=== PATIENT | female | born 1935 | race Caucasian/White ===

== ENCOUNTER → 2019-04-18 12:33 | Outpatient (CLI) | payer OTHER, SELFPAY ==
--- NOTE | 2019-04-18 | DI.RAD.S_ITS ---
PROCEDURE: XR FOOT LT MIN 3V INDICATIONS: LEFT FOOT PAIN TECHNIQUE: 3 views of the foot were acquired. COMPARISON: None. FINDINGS: Bones: No fractures or dislocations. No suspicious bony lesions. Soft tissues: No tibiotalar joint effusion. Achilles tendon appears normal. IMPRESSION: Arthritic changes seen at the interphalangeal joints and at the tarsal-metatarsal area. No acute trauma found. Dictated by: Steven Pryor M.D. on 04/18/2019 at 14:25 Approved by: Steven Pryor M.D. on 04/18/2019 at 14:26
== END ==
PROVIDERS: PCP Student in an Organized Health Care Education/Training Program; Visit Provider Student in an Organized Health Care Education/Training Program
DX: M79.672 Pain in left foot (principal)
CPT/HCPCS: 73630

== ENCOUNTER 2019-12-12 11:06 | Inpatient (IN) | payer OTHER, SELFPAY ==
[2019-12-12] VITALS (21 sets, daily range): BP systolic 162–227; BP diastolic 73–108; PULSE 53–77; RESP 14–18; TEMP 36.3–37.2; O2SAT 95–100; BMI 25.0
--- NOTE | 2019-12-12 11:20 | DI.CT.S_ITS ---
PROCEDURE: CT HEAD/BRAIN WO CON INDICATIONS: right facial droop last night TECHNIQUE: Noncontrast 4.5 mm thick angled axial sections acquired from the foramen magnum to the vertex, with coronal and sagittal reformats. For radiation dose reduction, the following was used: automated exposure control, adjustment of mA and/or kV according to patient size. COMPARISON: None. FINDINGS: Image quality: Excellent. CSF spaces: Basal cisterns are patent. No extra-axial fluid collections. The ventricles are symmetric in size and shape. Brain: No intracranial bleeds or masses. There is cerebral volume loss for age, with resultant ventricular and sulcal prominence. There are moderate to severe periventricular and deep white matter chronic small vessel ischemic changes. There is intracranial internal carotid artery atherosclerosis. Skull and face: Calvarium and visualized facial bones appear intact, without suspicious lesions. Sinuses: Visualized sinuses and mastoids are clear. IMPRESSION: 1. Age related volume loss and moderate to severe small vessel ischemic change. 2. No evidence acute stroke, hemorrhage, or mass. Dictated by: Samuel Sepulveda M.D. on 12/12/2019 at 11:49 Approved by: Samuel Sepulveda M.D. on 12/12/2019 at 11:50
--- NOTE | 2019-12-12 11:32 | ED_ITS ---
HPI - General Adult General Chief complaint: Neuro Symptoms/Deficit Stated complaint: TIA Time Seen by Provider: 12/12/19 11:19 History of Present Illness HPI narrative: 84-year-old woman with a history of osteoporosis presents with progressive neurologic findings. She currently lives alone and is waiting for her to be able to get into the [place] from [place]. Approximately 6:00 a.m. last night she looked in the mirror and noticed some mild facial asymmetry. She had not looked in the mirror all day so does not know what time this actually started. There were no sensory deficits associated. 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 Related Data Home Medications Medication Instructions Recorded Confirmed No Known Home Medications 12/12/19 12/12/19 Allergies Allergy/AdvReac Type Severity Reaction Status Date / Time No Known Drug Allergies Allergy Verified 12/12/19 11:40 Review of Systems Review of Systems Narrative: Denies ? fever ? cough ? cold ? chills ? chest pain ? dyspnea ? orthopnea ? wheezing ? abdominal pain ? change to bowel or bladder habits ? nausea vomiting ? skin changes ? rashes Patient History Medical History (Updated 12/12/19 @ 12:59 by Hailee Tuttle MD) Fx humeral neck (Inactive) Osteoporosis (Acute) Surgical History (Updated 12/12/19 @ 11:35 by Hailee Tuttle MD) H/O breast augmentation (Acute) Social History Smoking Status: Never smoker Exam Narrative Exam Narrative: General: Healthy appearing, in no acute distress. Able to give a complete and coherent history. Well-nourished well-developed HEENT: Moist mucous membranes, normal sclera with reactive pupils, Neck: No JVD, supple Respiratory: Lungs are clear to auscultation, no wheezing no rales no rhonchi. Full and symmetrical air movement Cardiac: Regular rate and rhythm no murmurs no bruits Abdomen: Soft nontender good bowel tones, no flank pain Skin: Warm and dry, no rashes Neurologic: Mild right facial droop with no sensory deficit, tongue deviates slightly to the left when fully extended, very mild dysarthria. She describes being off balance and right hand deficits but not significant enough to change her NIH score Extremities: No trauma, well perfused Psych: Cooperative, appropriate insight and affect NIH Stroke Scale/Score (NIHSS) from [email or web address] on 12/12/2019 RESULT SUMMARY: 2 points NIH Stroke Scale INPUTS: 1A: Level of consciousness ?> 0 = Alert; keenly responsive 1B: Ask month and age ?> 0 = Both questions right 1C: 'Blink eyes' & 'squeeze hands' ?> 0 = Performs both tasks 2: Horizontal extraocular movements ?> 0 = Normal 3: Visual styles ?> 0 = No visual loss 4: Facial palsy ?> 1 = Minor paralysis (flat nasolabial fold, smile asymmetry) 5A: Left arm motor drift ?> 0 = No drift for 10 seconds 5B: Right arm motor drift ?> 0 = No drift for 10 seconds 6A: Left leg motor drift ?> 0 = No drift for 5 seconds 6B: Right leg motor drift ?> 0 = No drift for 5 seconds 7: Limb Ataxia ?> 0 = No ataxia 8: Sensation ?> 0 = Normal; no sensory loss 9: Language/aphasia ?> 0 = Normal; no aphasia 10: Dysarthria ?> 1 = Mild-moderate dysarthria: slurring but can be understood 11: Extinction/inattention ?> 0 = No abnormality Initial Vital Signs Initial Vital Signs: Vital Signs Pulse Rate 72 12/12/19 11:16 Respiratory Rate 17 12/12/19 11:16 Blood Pressure 227/102 H 12/12/19 11:16 Pulse Oximetry 97 12/12/19 11:16 Course Course Course Narrative: Due to the unknown time of onset (very likely greater than 24 hours) and very low NIH score, she is not a tPA candidate Orders Ordered: ED Orders 12/12/19 11:20 CT head/brain wo con Stat EKG-12 Lead Stat 12/12/19 11:26 Complete Blood Count AUTO DIFF Stat Comprehensive Metabolic Panel Stat Partial Thromboplastin Time Stat Prothrombin Time INR Stat Urine Drug Screen, Rapid Stat Sodium Chloride (Normal Saline 0.9%) 1,000 mls @ 150 mls/hr IV CONT KRISTY Last Admin: 12/12/19 12:56 Dose: 150 mls/hr Documented by: MARITA Discontinued Medications Labetalol HCl (Trandate) 10 mg IV NOW ONE Stop: 12/12/19 12:37 Last Admin: 12/12/19 12:56 Dose: 10 mg Documented by: MARITA Vital Signs Vital signs: Vital Signs - 8 hr 12/12/19 11:16 12/12/19 11:19 12/12/19 11:27 Temperature Pulse Rate 72 71 67 Respiratory Rate 17 18 17 Blood Pressure 227/102 H Blood Pressure [Left Arm] 227/102 H 215/86 H Pulse Oximetry 97 97 98 12/12/19 11:42 12/12/19 11:46 12/12/19 12:00 Temperature 97.9 F Pulse Rate 64 62 Respiratory Rate 16 16 Blood Pressure Blood Pressure [Left Arm] 205/93 H 207/88 H Pulse Oximetry 99 99 12/12/19 12:15 12/12/19 12:30 12/12/19 12:45 Temperature Pulse Rate 60 61 60 Respiratory Rate 16 18 15 Blood Pressure Blood Pressure [Left Arm] 201/83 H 187/108 H 207/92 H Pulse Oximetry 12/12/19 12:56 Temperature Pulse Rate 66 Respiratory Rate Blood Pressure 207/92 H Blood Pressure [Left Arm] Pulse Oximetry Medical Decision Making Medical Records Medical records reviewed: Yes I reviewed the patient's medical records. Lab Data Lab results reviewed: Yes I reviewed the patient's lab results. Result diagrams: 12/12/19 11:26 12/12/19 11:26 Labs: Lab Results 12/12/19 12/12/19 12/12/19 Range/Units 11:26 11:26 11:26 WBC 6.8 (4.5-11.0) X10^3/uL RBC 4.61 (4.0-5.2) X10^6/uL Hgb 14.3 (12.0-16.0) g/dL Hct 42.8 (36-46) % MCV 92.9 (80-100) fL MCH 30.9 (26-34) PG MCHC 33.3 (30-36) % RDW 13.9 (11.6-14.8) % Plt Count 293 (150-400) X10^3/uL Neut % (Auto) 69.5 (50-75) % Lymph % (Auto) 21.5 L (25-40) % [place] % (Auto) 7.3 (3-14) % Eos % (Auto) 1.2 L (2-4) % Baso % (Auto) 0.5 (0-2) % Neut # (Auto) 4700 (9465-0382) /uL Lymph # (Auto) 1500 (6564-0372) /uL [place] # (Auto) 500 (0-900) /uL Eos # (Auto) 100 (0-450) /uL Baso # (Auto) 0 (0-100) /uL PT 11.6 (10.1-12.7) SECONDS INR 1.0 (0.9-1.3) APTT 33 (26.4-36.2) SECONDS Sodium 139 (137-145) mmol/L Potassium 4.4 (3.4-5.1) mmol/L Chloride 104 (98-107) mmol/L Carbon Dioxide 29 (22-32) mmol/L BUN 22 H (7-17) mg/dL Creatinine 0.66 (0.52-1.04) mg/dL Estimated GFR > 60.0 (>60) mL/min BUN/Creatinine Ratio 33.3 H (6-22) Glucose 108 (80-110) mg/dL Calcium 9.2 (8.4-10.2) mg/dL Total Bilirubin 0.4 (0.2-1.3) mg/dL AST 24 (14-36) IU/L ALT 14 (<35) IU/L Alkaline Phosphatase 70 (38-126) U/L Total Protein 7.8 (6.3-8.2) g/dL Albumin 4.3 (3.5-5.0) g/dL Globulin 3.5 (1.7-4.1) g/dL Albumin/Globulin Ratio 1.2 (1.0-2.8) U Opiates 300ng/mL cut (Negative) Ur Oxycodone Screen (Negative) Urine Methadone Screen (Negative) Ur Barbiturates Screen (Negative) U Tricyclic Antidepress (Negative) Ur Phencyclidine Scrn (Negative) Ur Amphetamines Screen (Negative) U Methamphetamines Scrn (Negative) Ur MDMA Scrn (Ecstasy) (Negative) U Benzodiazepines Scrn (Negative) Urine Cocaine Screen (Negative) U Marijuana (THC) Screen (Negative) 12/12/19 Range/Units 11:26 WBC (4.5-11.0) X10^3/uL RBC (4.0-5.2) X10^6/uL Hgb (12.0-16.0) g/dL Hct (36-46) % MCV (80-100) fL MCH (26-34) PG MCHC (30-36) % RDW (11.6-14.8) % Plt Count (150-400) X10^3/uL Neut % (Auto) (50-75) % Lymph % (Auto) (25-40) % [place] % (Auto) (3-14) % Eos % (Auto) (2-4) % Baso % (Auto) (0-2) % Neut # (Auto) (9920-9453) /uL Lymph # (Auto) (3778-5975) /uL [place] # (Auto) (0-900) /uL Eos # (Auto) (0-450) /uL Baso # (Auto) (0-100) /uL PT (10.1-12.7) SECONDS INR (0.9-1.3) APTT (26.4-36.2) SECONDS Sodium (137-145) mmol/L Potassium (3.4-5.1) mmol/L Chloride (98-107) mmol/L Carbon Dioxide (22-32) mmol/L BUN (7-17) mg/dL Creatinine (0.52-1.04) mg/dL Estimated GFR (>60) mL/min BUN/Creatinine Ratio (6-22) Glucose (80-110) mg/dL Calcium (8.4-10.2) mg/dL Total Bilirubin (0.2-1.3) mg/dL AST (14-36) IU/L ALT (<35) IU/L Alkaline Phosphatase (38-126) U/L Total Protein (6.3-8.2) g/dL Albumin (3.5-5.0) g/dL Globulin (1.7-4.1) g/dL Albumin/Globulin Ratio (1.0-2.8) U Opiates 300ng/mL cut Negative (Negative) Ur Oxycodone Screen Negative (Negative) Urine Methadone Screen Negative (Negative) Ur Barbiturates Screen Negative (Negative) U Tricyclic Antidepress Negative (Negative) Ur Phencyclidine Scrn Negative (Negative) Ur Amphetamines Screen Negative (Negative) U Methamphetamines Scrn Negative (Negative) Ur MDMA Scrn (Ecstasy) Negative (Negative) U Benzodiazepines Scrn Negative (Negative) Urine Cocaine Screen Negative (Negative) U Marijuana (THC) Screen Negative (Negative) Point of Care Testing Glucose POC 99 Point of care testing: Point of Care Testing Glucose POC [address] scan - head: Radiologist's Impression: IMPRESSION: 1. Age related volume loss and moderate to severe small vessel ischemic change. 2. No evidence acute stroke, hemorrhage, or mass. Dictated by: Samuel Sepulveda M.D. on 12/12/2019 at 11:49 ECG Data Attestation: I personally reviewed and interpreted this ECG as follows: Interpretation: Normal sinus rhythm at a rate of 62 Q-waves in leads II and AVF suggesting prior infarct Right axis deviation No acute ischemic changes MDM Narrative Medical decision making narrative: Clinically she has had a left-sided stroke with right-sided facial droop, minor dysarthria and minor motor difficulties in the right upper and lower extremities. Continues to have significantly elevated blood pressure which will be treated with IV labetalol goal of a systolic blood pressure around 180. She will be admitted to the hospitalist service for further workup. Findings and plan reviewed with the patient as well as her via face time. [id number] Leach, hospitalist. Care is accepted. Discharge Plan Departure Patient Disposition: Admitted As Inpatient Clinical Impression: Stroke Qualifiers: CVA mechanism: unspecified Qualified Code(s): I63.9 - Cerebral infarction, unspecified Discharge Date/Time: 12/12/19 12:59 Admit Date/Time: 12/12/19 12:57 Admit Provider: [place] Leach
[2019-12-12 11:33] LABS: Add Manual Diff / Slide Review NO; Basophils Absolute Auto 0 /uL (0-100); Basophils Percent Auto 0.5 % (0-2); Eosinophils Absolute Auto 100 /uL (0-450); Eosinophils Percent Auto 1.2 % (2-4); Hematocrit 42.8 % (36-46); Hemoglobin 14.3 g/dL (12.0-16.0); Lymphocytes Absolute Auto 1500 /uL (1100-4500); Lymphocytes Percent Auto 21.5 % (25-40); Mean Corpuscular HGB Conc 33.3 % (30-36); Mean Corpuscular Hemoglobin 30.9 PG (26-34); Mean Corpuscular Volume 92.9 fL (80-100); Monocytes Absolute Auto 500 /uL (0-900); Monocytes Percent Auto 7.3 % (3-14); Neutrophils Absolute Auto 4700 /uL (1500-7000); Neutrophils Percent Auto 69.5 % (50-75); Platelet Count 293 X10^3/uL (150-400); Red Blood Cell Count 4.61 X10^6/uL (4.0-5.2); Red Cell Distribution Width 13.9 % (11.6-14.8); White Blood Cell Count 6.8 X10^3/uL (4.5-11.0)
[2019-12-12 11:39] LABS: Prothrombin Time 11.6 SECONDS (10.1-12.7)
[2019-12-12 11:41] LABS: PTT Partial Thromboplastin Tim 33 SECONDS (26.4-36.2)
[2019-12-12 11:43] LABS: Alanine Aminotransferase 14 IU/L (<35); Albumin 4.3 g/dL (3.5-5.0); Albumin Globulin Ratio 1.2 (1.0-2.8); Alkaline Phosphatase 70 U/L (38-126); Aspartate Aminotransferase 24 IU/L (14-36); BUN Creatinine Ratio 33.3 (6-22); Bilirubin Total 0.4 mg/dL (0.2-1.3); Blood Urea Nitrogen 22 mg/dL (7-17); Calcium 9.2 mg/dL (8.4-10.2); Carbon Dioxide 29 mmol/L (22-32); Chloride 104 mmol/L (98-107); Estimated Glomerular Filt Rate > 60.0 mL/min (>60); Globulin 3.5 g/dL (1.7-4.1); Glucose 108 mg/dL (80-110); HEMOLYSIS < 15 (0-50); Potassium 4.4 mmol/L (3.4-5.1); Sodium 139 mmol/L (137-145); Total Protein 7.8 g/dL (6.3-8.2)
[2019-12-12] MEDS: SODIUM CHLORIDE 0.9% 1,000 ML 150 ML IV (12:56)
[2019-12-12] MEDS: LABETALOL 20 MG/4 ML SYRINGE 10 MG IV (12:56)
[2019-12-12 13:00] LABS: UR Morphine/Opiate cutoff 300 Negative (Negative); Ur Creatinine Normal (Normal); Ur Specific Gravity Normal (Normal); Urine Amphetamines Negative (Negative); Urine Barbiturates Negative (Negative); Urine Benzodiazepines Negative (Negative); Urine Cocaine Negative (Negative); Urine MDMA Negative (Negative); Urine Methadone Negative (Negative); Urine Methamphetamines Negative (Negative); Urine Oxycodone Negative (Negative); Urine Phencyclidine Negative (Negative); Urine Tetrahydrocannabinol Negative (Negative); Urine Tricyclic Antidepressant Negative (Negative); Urine pH Normal (Normal)
--- NOTE | 2019-12-12 13:01 | PC.NURSE ---
patient resting in bed talking to on phone. Monitoring blood pressure. Patient in good spirits, denies complaints, and no neurological changes noted. Patient able to ambulate to bathroom with standby assistance. normal gate noted. call light in reach.
[2019-12-12 13:51] LABS: Bacteria Urine None Seen; RBC Urine None Seen (0-5/HPF); WBC Urine None Seen (0-5/HPF)
[2019-12-12 13:52] LABS: Appearance Urine UA CLEAR; Bilirubin Urine UA NEGATIVE (NEGATIVE); Color Urine UA YELLOW; Glucose Urine UA NEGATIVE (Negative); Ketones Urine UA NEGATIVE (NEGATIVE); Leukocyte Esterase Urine UA NEGATIVE (NEGATIVE); Nitrite Urine UA NEGATIVE (Negative); Occult Blood Urine UA NEGATIVE (Negative); Protein Urine UA NEGATIVE (Negative); Urobilinogen Urine UA 0.2 E.U./dL (0.2)
[2019-12-12 13:56] LABS: Culture Indicated Urine Cult Not Indicated; Urine Comments Microscopic Normal
--- NOTE | 2019-12-12 14:52 | P.HP_ITS ---
History of Present Illness History of Present Illness Date Patient Seen: 12/12/19 Time Patient Seen: 14:52 Date of Onset of Symptoms: 12/11/19 Chief complaint: TIA Narrative: Krista Ryan is an 84-year-old female with remote past medical h istory of hyperthyroidism but not currently on any medical therapy who presented with a right-sided facial droop since yesterday evening. Patient states that yesterday she felt off most of the day and fatigued. She denied any specific complaints until she looked in the bathroom ear and saw that she had a right- sided facial droop. She was it extremely tired at that time, and according to her she had been drinking so she went to bed. Prior to going to bed she did write her recumbent bike in her home for about 6 miles at full resistance. When she woke up this morning she had continued right-sided facial droop. She does note some difficulty in speaking in word finding, but only minimally. She has a dull diffuse headache, but minimal in severity and now hardly noticeable. She denies any recent chest pains, palpitations, shortness of breath, lower extremity edema, dizziness. She does endorse that this morning she was having difficulty in walking and noticed that she was drifting to the right. In the emergency room, patient was hypertensive, mildly bradycardic. She had an NIH stroke scale of 2. Initial laboratory evaluation the emergency room including CBC, CMP, urine drug screen, urinalysis did not reveal any remarkable abnormal lab findings. Initial head CT was negative for hemorrhage. EKG shows normal sinus rhythm, with flipped T-waves in her lateral leads I, aVL as well as lead II. She was admitted to Medicine for likely an acute CVA. Patient was ordered for loading dose of aspirin and Plavix given stroke scale less than 3 on admission. Patient History Medical History (Updated 12/12/19 @ 12:59 by Hailee Tuttle MD) Fx humeral neck (Inactive) Osteoporosis (Acute) Surgical History (Updated 12/12/19 @ 11:35 by Hailee Tuttle MD) H/O breast augmentation (Acute) Family & Social History Safety & Behavioral: Feels Safe in Current Yes Environment Been Physically Hurt or No Threatened By a Person Tobacco & Substance use: Smoking Status Never smoker Substance Use Type does not use Meds Home Medications and Allergies Home Medications Medication Instructions Recorded Confirmed Type No Known Home Medications 12/12/19 12/12/19 History Allergies Allergy/AdvReac Type Severity Reaction Status Date / Time No Known Drug Allergies Allergy Verified 12/12/19 11:40 Review of Systems Review of Systems Narrative: All other systems reviewed with the patient and are negative unless otherwise stated. Exam Vital Signs (past 8 hours): - 12/12/19 11:16 12/12/19 11:19 12/12/19 11:27 Temperature Pulse Rate 72 71 67 Respiratory Rate 17 18 17 Blood Pressure 227/102 H Blood Pressure [Left Arm] 227/102 H 215/86 H Pulse Oximetry 97 97 98 12/12/19 11:42 12/12/19 11:46 12/12/19 12:00 Temperature 97.9 F Pulse Rate 64 62 Respiratory Rate 16 16 Blood Pressure Blood Pressure [Left Arm] 205/93 H 207/88 H Pulse Oximetry 99 99 12/12/19 12:15 12/12/19 12:30 12/12/19 12:45 Temperature Pulse Rate 60 61 60 Respiratory Rate 16 18 15 Blood Pressure Blood Pressure [Left Arm] 201/83 H 187/108 H 207/92 H Pulse Oximetry 12/12/19 12:56 12/12/19 13:04 12/12/19 13:15 Temperature Pulse Rate 66 60 58 L Respiratory Rate 14 14 Blood Pressure 207/92 H Blood Pressure [Left Arm] 194/81 H 175/75 H Pulse Oximetry 97 98 12/12/19 13:17 12/12/19 13:58 12/12/19 14:21 Temperature 97.7 F 97.6 F Pulse Rate 58 L 57 L 57 L Respiratory Rate 14 14 Blood Pressure 174/78 H Blood Pressure [Left Arm] 175/75 H 162/73 H Pulse Oximetry 97 97 Oxygen Delivery Method Room Air Narrative Exam Narrative: GENERAL APPEARANCE: Well developed, well nourished, in no acute distress. SKIN: Inspection of the skin reveals no rashes, ulcerations or petechiae. HEENT: Normocephalic atraumatic, extraocular muscles are intact, oropharynx is clear and mucous membranes are moist, neck is supple without adenopathy NECK: Supple and symmetric. There was no thyroid enlargement, and no tenderness, or masses were felt. CHEST: Normal AP diameter and normal contour without any kyphoscoliosis. LUNGS: Auscultation of the lungs revealed no wheezes, rhonchi, or rales. CARDIOVASCULAR: There was a regular rate and rhythm without any murmurs, gallops , rubs. Peripheral pulses were 2+ and symmetric. ABDOMEN: Soft and nontender with normal bowel sounds. No ascites was noted. MUSCULOSKELETAL: There was no tenderness or effusions noted. Muscle strength and tone were normal. EXTREMITIES: No cyanosis, clubbing or edema. NEUROLOGIC: Alert and oriented x 3. Normal affect. Gait was not assessed. Heel to f[place] unremarkable, finger to nose unremarkable, no inattention. Moderate facial asymmetry on the right. No evident speech difficulties on my exam. Objective Labs Result Diagrams: 12/12/19 11:26 12/12/19 11:26 Labs: Laboratory Results - last 24 hr 12/12/19 12/12/19 12/12/19 11:26 11:26 11:26 WBC 6.8 RBC 4.61 Hgb 14.3 Hct 42.8 MCV 92.9 MCH 30.9 MCHC 33.3 RDW 13.9 Plt Count 293 Neut % (Auto) 69.5 Lymph % (Auto) 21.5 L [place] % (Auto) 7.3 Eos % (Auto) 1.2 L Baso % (Auto) 0.5 Neut # (Auto) 4700 Lymph # (Auto) 1500 [place] # (Auto) 500 Eos # (Auto) 100 Baso # (Auto) 0 PT 11.6 INR 1.0 APTT 33 Sodium 139 Potassium 4.4 Chloride 104 Carbon Dioxide 29 BUN 22 H Creatinine 0.66 Estimated GFR > 60.0 BUN/Creatinine Ratio 33.3 H Glucose 108 Calcium 9.2 Total Bilirubin 0.4 AST 24 ALT 14 Alkaline Phosphatase 70 Total Protein 7.8 Albumin 4.3 Globulin 3.5 Albumin/Globulin Ratio 1.2 Urine Color Urine Appearance Urine pH Ur Specific [place] Urine Protein Urine Glucose (UA) Urine Ketones Urine Occult Blood Urine Nitrate Urine Bilirubin Urine Urobilinogen Ur Leukocyte Esterase Urine RBC Urine WBC Urine Bacteria Ur Culture Indicated? Micro UA Comment U Opiates 300ng/mL cut Ur Oxycodone Screen Urine Methadone Screen Ur Barbiturates Screen U Tricyclic Antidepress Ur Phencyclidine Scrn Ur Amphetamines Screen U Methamphetamines Scrn Ur MDMA Scrn (Ecstasy) U Benzodiazepines Scrn Urine Cocaine Screen U Marijuana (THC) Screen 12/12/19 12/12/19 11:26 11:26 WBC RBC Hgb Hct MCV MCH MCHC RDW Plt Count Neut % (Auto) Lymph % (Auto) [place] % (Auto) Eos % (Auto) Baso % (Auto) Neut # (Auto) Lymph # (Auto) [place] # (Auto) Eos # (Auto) Baso # (Auto) PT INR APTT Sodium Potassium Chloride Carbon Dioxide BUN Creatinine Estimated GFR BUN/Creatinine Ratio Glucose Calcium Total Bilirubin AST ALT Alkaline Phosphatase Total Protein Albumin Globulin Albumin/Globulin Ratio Urine Color Yellow Urine Appearance Clear Urine pH 7.0 Ur Specific [place] 1.020 Urine Protein Negative Urine Glucose (UA) Negative Urine Ketones Negative Urine Occult Blood Negative Urine Nitrate Negative Urine Bilirubin Negative Urine Urobilinogen 0.2 Ur Leukocyte Esterase Negative Urine RBC None seen Urine WBC None seen Urine Bacteria None seen Ur Culture Indicated? Cult not indicated Micro UA Comment Microscopic normal U Opiates 300ng/mL cut Negative Ur Oxycodone Screen Negative Urine Methadone Screen Negative Ur Barbiturates Screen Negative U Tricyclic Antidepress Negative Ur Phencyclidine Scrn Negative Ur Amphetamines Screen Negative U Methamphetamines Scrn Negative Ur MDMA Scrn (Ecstasy) Negative U Benzodiazepines Scrn Negative Urine Cocaine Screen Negative U Marijuana (THC) Screen Negative Assessment & Plan Assessment & Plan narrative: Krista Ryan is an 84-year-old female with remote past medical history of hyperthyroidism but not currently on any medical therapy who presented with a right-sided facial droop since yesterday evening, She is admitted for likely acute CVA with persistent symptoms. 1. acute CVA, present on admission - - patient presented with right-sided facial droop starting at 6:00 p.m. day prior to admission. Thrombolytics not indicated based on delayed presentation. Patient will be loaded with aspirin and Plavix and continue on DAPT for 21 days and then narrow to aspirin only. - Will obtain MR stroke protocol - continue telemetry, have ordered Echocardiogram - CT noncontrast on admission did not show any evidence of hemorrhage. - allow for permissive hypertension with labetalol to be given if systolic blood pressures greater than 180 - risk stratify with a.m. TSH, A1c, lipid panel - PT/OT /speech eval and treat - patient does endorse a history of hyperthyroidism, but has been checked annually without evidence of recurrence. Will obtain TSH as previously noted but does not have any symptoms. 2. hypertension, unknown chronicity - unclear if patient has underlying hypertension as risk factor or if this is related to her acute CVA - will continue to monitor blood pressure and allow for permissive hypertension in setting of an acute CVA - continue with as needed albuterol for systolic blood pressures greater than 180 code: Full, states surrogate decision maker is her who currently lives in [place]. DVT: Lovenox daily Scores NIHSS Level of Conciousness: Alert, keenly responsive Ask month/age: Answers both questions correctly. Open/close eyes, close hand: Performs both tasks correctly Best gaze horizontal: Normal Visual styles: No visual loss Facial palsy: Partial paralysis, total or near total paralysis of lower face Left arm drift: No drift for full 10 sec Right arm drift: No drift for full 10 sec Left leg drift: No drift for full 5 sec Right leg drift: No drift for full 5 sec Limb ataxia: Absent Sensory on face/arms/legs: Normal, no sensory loss Best language: No aphasia, normal Dysarthria: Normal Extinction or inattention: No abnormality Total NIH Stroke scale score: 2
--- NOTE | 2019-12-12 14:58 | DI.MRI.S_ITS ---
PROCEDURE: MR STROKE Pre- and post-contrast brain MRI, non-contrast brain MR angiogram, pre- and postcontrast neck MR angiogram INDICATIONS: Right facial droop TECHNIQUE: Brain: Noncontrast axial T1 spin echo, axial T2 fast spin echo, sagittal and axial FLAIR, coronal T2 fast spin echo, axial gradient echo, axial diffusion and ADC through the brain. After the administration of contrast, axial 3D VIBE of the cranial vasculature and brain. Brain MRA: Non-contrast 3-D time of flight MR angiogram, with multiple cwimfma-ixuavgpwn-dgxzivpwzh (MIP) reformats performed. Neck MRA: Axial and sagittal TruFISP through the neck. Coronal dynamic MR angiogram during administration of contrast in the arterial and venous phases, with 3-dimenstional twxukjz-ytgwayljz-tmyvjgdlwk (MIP) reformats constructed from subtraction images. COMPARISON: None. FINDINGS: Image quality: Excellent. BRAIN: CSF spaces: Ventricles are normal in size and shape. Basal cisterns are patent. No extra-axial fluid collections. Brain: No acute intracranial bleeds or mass effects. Several scattered low gradient echo signal intensity foci within the right temporal and parietal lobes are present. There is mild diffuse cerebral volume loss. There is a moderate degree of patchy high FLAIR signal within the periventricular and subcortical white matter. Siddiqi-white matter interface is normal. Diffusion weighted images demonstrate a 10 mm focus of elevated signal intensity within the left centrum semiovale which demonstrates mild fullness signal elevation and pleural ADC map signal. Brainstem appears normal. Normal intravascular flow voids are present. No abnormal intracranial enhancement. Skull and face: Calvarial marrow signal is normal. Orbits appear normal. Sinuses: Left maxillary sinus retention cyst. Sinuses and mastoids are otherwise clear. BRAIN MR ANGIOGRAM: Anterior circulation: Intracranial internal carotid arteries are normal in size and enhancement. The flow within the paired anterior cerebral arteries is normal and symmetric. The flow within the middle cerebral arteries is normal and symmetric. The anterior communicating artery is seen. No stenoses, occlusions, or aneurysms. Posterior circulation: The visualized portions of the vertebral arteries demonstrate normal caliber, and join to form a normal appearing basilar artery. The flow within the posterior cerebral arteries is normal and symmetric. No stenoses, occlusions, or aneurysms. NECK MR ANGIOGRAM: Carotids: Great vessels demonstrate a conventional anatomy as they arise from the aortic arch. The origins of the common carotid arteries appear patent. The calibers and courses of both common carotid arteries are normal. The bifurcation regions appear normal bilaterally. The internal carotid arteries demonstrate normal course and caliber. Posterior circulation: The origins of the vertebral arteries are not well-seen. More superior portions of both vertebral arteries demonstrate normal course and caliber, and join to form a normal appearing basilar artery. Miscellaneous: Subclavian arteries appear patent. Pre-contrast images through the neck show no soft tissue abnormalities. IMPRESSION: BRAIN MRI: 1. 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 2. Low gradient echo signal intensity foci within the right cerebral hemisphere as described above, consistent with chronic sequelae of amyloid angiopathy. BRAIN MR ANGIOGRAM: Negative cerebral MR angiography. NECK MR ANGIOGRAM: 1. No internal carotid artery stenosis bilaterally. 2. Suboptimal visualization of the vertebral artery origins. Vertebral arteries are patent. Dictated by: Charity Bellamy M.D. on 12/12/2019 at 17:06 Approved by: Charity Bellamy M.D. on 12/12/2019 at 17:10
--- NOTE | 2019-12-12 15:05 | DI.ECHO.S_ITS ---
[place] [facility] +---------+ : : [address] : : : : [id number] : : : : Phone: [phone]+ Echocardiogram Report + + :Name: CALDERON MEJIA Study Date: 12/13/2019 Height: 64 in : :[facility] Weight: 146 lb : : Gender: Female BSA: 1.7 m2 : :: 1935 Age: 84 yrs BP: 166/77 mmHg: :Reason For Study: CVA : :Ordering Physician: Qiana : :Hospitalist Performed By: Karolina Mayers : :Referring: BOBBI HERNANDEZ : + + Interpretation Summary The left ventricle is normal in size, wall thickness, and systolic function without any focal wall motion abnormalities with the ejection fraction is estimated to be 60-65%. Diastolic parameters suggest a relaxation abnormality of the left ventricle, consistent with probable normal filling pressures. The right ventricle is normal in size and function. Pulmonary artery pressures cannot be estimated because of the lack of a measurable TR jet velocity but the IVC suggests a CVP of around 3 mmHg. Both atria are normal in size. There is no significant valvular heart disease. The ascending aorta is mildly enlarged. The patient was in sinus bradycardia with heart rates between 51-60 bpm during the exam. Procedure: A two-dimensional transthoracic echocardiogram with color flow and Doppler was performed. The study quality was technically adequate. There is no prior echocardiogram noted for this patient. The patient was in sinus bradycardia with heart rates between 51-60 bpm during the exam. Left Ventricle: The left ventricle is normal in size, wall thickness, and systolic function without any focal wall motion abnormalities. The ejection fraction is estimated to be 60-65%. Diastolic parameters suggest a relaxation abnormality of the left ventricle, consistent with probable normal filling pressures. Right Ventricle: The right ventricle is normal in size and function. Atria: Both atria are normal in size. There is no Doppler evidence for an interatrial shunt. Mitral Valve: There is mild mitral annular calcification. The mitral valve leaflets appear mildly thickened, but open well. There is trace mitral regurgitation. Aortic Valve: The aortic valve is trileaflet. The aortic valve is slightly calcified. The aortic valve opens well. There is trace aortic regurgitation. Tricuspid Valve: The tricuspid valve is not well visualized, but is grossly normal. There is trace tricuspid regurgitation. Pulmonary artery pressures cannot be estimated because of the lack of a measurable TR jet velocity but the IVC suggests a CVP of around 3 mmHg. Pulmonic Valve: The pulmonic valve is not well visualized. There is trace pulmonic regurgitation. There is no significant valvular heart disease. Great Vessels: The aortic root is normal size. The ascending aorta is mildly enlarged. The IVC is of normal diameter and collapses greater than 50% with a sniff. This suggests a low right atrial pressure of 3 mm Hg. Pericardium/ Pleura There is no pericardial effusion. There is no pleural effusion. MMode/2D Measurements & Calculations LVIDd: 4.3 cm LVOT diam: 2.0 cm LVIDs: 2.9 cm Ao root diam: 2.9 cm FS: 32.8 % asc Aorta Diam: 3.5 cm EPSS: 0.76 cm Ao Arch Diam (Prox Trans): 2.6 cm IVSd: 0.84 cm LVPWd: 1.1 cm LV godoy. diameter/BSA (cm/m^2): 2.5 LV sys. diameter/BSA (cm/m^2): 1.7 LA A2 area: 20.5 cm2 RA long axis: 5.2 cm LA A4 area: 15.9 cm2 RA area: 15.9 cm2 LA length (vol): 5.3 cm RA vol: 40.9 ml LA vol: 52.6 ml RA : 23.9 ml/m2 LA vol index: 30.7 ml/m2 IVC diam: 1.5 cm RVD1 (basal): 3.2 cm TAPSE: 1.8 cm Doppler Measurements & Calculations Ao V2 max: 130.7 cm/sec LVOT Max Jamie: 106.1 cm/sec Ao V2 mean: 81.7 cm/sec LV V1 max P.5 mmHg Ao max P.8 mmHg LV V1 VTI: 25.8 cm Ao mean P.2 mmHg DEION(I,D): 2.5 cm2 Ao V2 VTI: 31.3 cm DEION(V,D): 2.4 cm2 sev ratio: 0.83 DEION indexed to BSA (cm^2/m^2): 1.5 MV E max jamie: 95.1 cm/sec TR max jamie: 237.1 cm/sec MV A max jamie: 111.2 cm/sec TR max P.5 mmHg MV E/A: 0.85 PA V2 max: 67.2 cm/sec Med Peak E' Jamie: 5.8 cm/sec PA V2 mean: 44.1 cm/sec E/E' med: 16.4 PA mean P.89 mmHg Lat Peak E' Jamie: 6.2 cm/sec PA pr(Accel): 43.2 mmHg E/E' lat: 15.3 PA Accel Time: 0.08 sec E/e' average: 15.9 MV dec time: 0.28 sec MV P1/2t: 83.2 msec MV P1/2t max jamie: 94.9 cm/sec SV(LVOT): 77.7 ml MVA(P1/2t): 2.6 cm2 Reading Physician:NADIRA
--- NOTE | 2019-12-12 15:34 | PC.NURSE ---
pt arrived to room 223 at 1430 from ed- her vss with permissive htn at 183/83, pt is alert/oriented and seems to have no focal deficits- denies pain and is cooperative- Sherrell at [facility] admitting pt- placed on tele #3 and shows sb rate 55 - inital ct negative awaitng mri
[2019-12-12] MEDS: ASPIRIN 81 MG CHEW TAB 324 MG PO (16:01)
[2019-12-12] MEDS: CLOPIDOGREL 75 MG TABLET 300 MG PO (16:05)
[2019-12-12] MEDS: ATORVASTATIN 20 MG TABLET 80 MG PO (21:58)
--- NOTE | 2019-12-12 22:20 | PC.NURSE ---
2144 - Reviewed VS and IV fluid orders on emar. Clarification orders obtained. Pt able to take HS meds without difficulty. Reinforced safety and call light use. Bed alarm on. 1615 - Pt off unit to MRI. NIH scale 1. Able to stand pivot transfer to wheelchair.
[2019-12-13] VITALS (7 sets, daily range): BP systolic 142–177; BP diastolic 69–80; PULSE 53–75; RESP 16–18; TEMP 36–36.9; O2SAT 96–99
[2019-12-13 05:49] LABS: Add Manual Diff / Slide Review NO; Basophils Absolute Auto 0 /uL (0-100); Basophils Percent Auto 0.7 % (0-2); Eosinophils Absolute Auto 200 /uL (0-450); Eosinophils Percent Auto 3.6 % (2-4); Hematocrit 39.6 % (36-46); Lymphocytes Absolute Auto 1800 /uL (1100-4500); Lymphocytes Percent Auto 32.4 % (25-40); Mean Corpuscular HGB Conc 32.9 % (30-36); Mean Corpuscular Hemoglobin 30.6 PG (26-34); Mean Corpuscular Volume 92.9 fL (80-100); Monocytes Absolute Auto 600 /uL (0-900); Neutrophils Absolute Auto 2900 /uL (1500-7000); Neutrophils Percent Auto 52.3 % (50-75); Platelet Count 265 X10^3/uL (150-400); Red Blood Cell Count 4.26 X10^6/uL (4.0-5.2); Red Cell Distribution Width 13.8 % (11.6-14.8); White Blood Cell Count 5.5 X10^3/uL (4.5-11.0)
[2019-12-13 05:55] LABS: BUN Creatinine Ratio 25.4 (6-22); Blood Urea Nitrogen 15 mg/dL (7-17); Calcium 8.9 mg/dL (8.4-10.2); Carbon Dioxide 28 mmol/L (22-32); Chloride 106 mmol/L (98-107); Estimated Glomerular Filt Rate > 60.0 mL/min (>60); Glucose 101 mg/dL (80-110); HEMOLYSIS < 15 (0-50); Magnesium 2.2 mg/dL (1.6-2.3); Potassium 4.1 mmol/L (3.4-5.1); Sodium 136 mmol/L (137-145)
[2019-12-13 06:00] LABS: Hemoglobin A1C% w Est Avg Glu 5.8 % (4.0-6.0)
[2019-12-13 06:05] LABS: Cholesterol 209 mg/dL (140-199); HDL Cholesterol 50 mg/dL (40-60); LDL Cholesterol Calculated 141 mg/dL (<100); Triglycerides 88 mg/dL (35-150)
[2019-12-13 06:56] LABS: TSH w/ Reflex to FT4 3.38 uIU/mL (0.47-4.68)
[2019-12-13] MEDS: CLOPIDOGREL 75 MG TABLET PO (09:02)
[2019-12-13] MEDS: SODIUM CHLORIDE 0.9% FLUSH 10 ML IV (09:02)
[2019-12-13] MEDS: ASPIRIN EC 81 MG TABLET PO (09:02)
--- NOTE | 2019-12-13 12:01 | PT.IIE ---
Current Diagnoses Cerebral infarction, unspecified (12/12/19) Surgical History (Last Updated 12/12/19 @ 11:35 by Hailee Tuttle MD) H/O breast augmentation (Acute) Medical History (Last Updated 12/12/19 @ 11:35 by Hailee Tuttle MD) Fx humeral neck (Inactive) Osteoporosis (Acute) Physical Therapy Inpatient Evaluation/Re-Eval M1 PT/OT-IP Prior Functional Status Start: 12/13/19 09:09 Freq: NEEDED Status: Active Protocol: Document 12/13/19 11:15 AW (Rec: 12/13/19 12:01 AW [id number]) Medical Review Prior Functional Status Medical History Reviewed Yes Communication WFL. Pt is an effective verbal communicator Mobility and Gait Pt is independent with all mobility, requiring no assistive device. She is an active woman who uses her stationary bike at home regularly and has no limit to ambulation distance or time. Activities of Daily Living and IADL's Independent, including driving , shopping, meal prep, finances. Prior Functional Level (Other details) Pt reports one injurious fall from a podium ~4 years ago but no falls since that time. Social History Household Members none Living Arrangements House Number of Floors (Floors) Two Floors Number of Stairs To Enter/Railing? Pt's home has a level entry to the main level where she resides. The basement has an apartment which she rents out but she has no need to use the stairs at this time. All needs are located on the main level. 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 Pt has no current renters in her home. Her granddaughter is en route from [place], [place] and is expected to arrive tomorrow to stay with her short-term. She is but her currently resides in [place] and is working on immigrating to live with her. M2 PT-IP Current Condition Start: 12/13/19 09:09 Freq: NEEDED Status: Active Protocol: Document 12/13/19 11:15 AW (Rec: 12/13/19 12:01 AW [id number]) Physical Therapy Current Condition Current Condition Evaluation Date 12/13/19 Treatment Diagnosis acute CVA, difficulty in walking Onset Date 12/12/19 M3 PT-IP Subjective Start: 12/13/19 09:09 Freq: NEEDED Status: Active Protocol: Document 12/13/19 11:15 AW (Rec: 12/13/19 12:01 AW [id number]) Subjective Physical Therapy Visit Type Type Initial Evaluation Visit Start Time 10:33 Visit Stop Time 11:08 Total Visit Minutes 35 Notes MRI report indicates 1. 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 2. Low gradient echo signal intensity foci within the right cerebral hemisphere as described above, consistent with chronic sequelae of amyloid angiopathy. H&P states allow permissive HTN to 180 systolic. Physical Therapy Visit Comments Patient Comments Pt is feeling well and willing to participate with PT Patient Goals Pt hopes to discharge to her home environment with the assistance of her granddaughter Therapy Pain Assessment Pain When Pain Assessed At Rest Pain Present Pain Present Denied Pain M4 PT-IP Mobility and Gait Start: 12/13/19 09:09 Freq: NEEDED Status: Active Protocol: Document 12/13/19 11:15 AW (Rec: 12/13/19 12:01 AW [id number]) PT-Bed Mobility Assessment Supine to Sit Supine to Sit Independent Sit to Supine Sit to Supine Independent Scooting Scooting to Edge of Bed Independent Scooting Up and Down in Bed Independent PT-Transfer Assessment Sit to and From Stand Sit to and from Stand Independent Equipment Transfer Assistive Device None Transfers Transfer Destination Chair,Toilet Transfer Technique pt ambulated independently Transfer Ability Level of Assist Independent Comments Mobility Comments Pt completed supine to sit independent from flat bed and sat EOB with and without UE support with no observable lean. She stood and ambulated to the toilet without AD and without need for assist, transferring to and from the toilet independently. After gait assessment, pt returned to bed. Gait Assessment Gait Gait Assistance Required: Independent Distance (Feet) 300 Assistive Devices Assistive Device Gait Belt Orthotic/Prosthetic Devices or Brace: No Gait Deviations General Gait Pattern Decreased Stride Length, Decreased Feet Clearance, Lateral Trunk Lean Factors Limiting Gait Function Factors Limiting Gait Function Decreased Strength Comments Gait Comments Pt ambulated in the halls independently. Gait was notable for very slight right lateral lean, decreased step length, and decreased foot clearance. Pt stated she felt as if her gait was consistent with baseline. She was able to perform horizontal and vertical head turns without path deviation or change in velocity. She had difficulty increasing her gait speed, but was otherwise independent. She scored 11/12 on modified ( 4-item) Dynamic Gait Index. Stair Climbing Assessment Comments Stair Climbing Comments Not assessed. Pt has no need to access basement at home. PT-Balance Assessment Sitting Balance and Reactions Static Sitting Balance Ability Normal Dynamic Sitting Balance Ability Normal Standing Balance and Reactions Static Standing Balance Ability Good Dynamic Standing Balance Ability Good Device Used no AD Balance Tests Single Limb Standing ~2 seconds each side without support Tandem Standing normal Comments Other Balance Tests/Deviations/Treatment Pt able to perform tandem : stance without assist. She also walked heel-toe ~10 steps with SBA. She completed narrow stance standing with eyes open and eyes closed 30 seconds in each condition without significant sway. Functional Assessments Functional Tests Dynamic Gait Index 07/17 mDGI M5 PT-IP Objective Assessments Start: 12/13/19 09:09 Freq: NEEDED Status: Active Protocol: Document 12/13/19 11:15 AW (Rec: 12/13/19 12:01 AW [id number]) Orientation Orientation/Cognition Level of Alertness Alert Orientation Day of Week,Place,Situation Language Function Ability No Deficits Noted Safety Awareness Understands Safety Issues Memory Description No Deficits Noted Comments Pt was able to recall all three words (apple, table, anel) after five minutes of unrelated conversation with no prompts.. Gross Range of Motion Upper Extremity ROM Assessment Within Functional Limits Lower Extremity ROM Assessment Within Functional Limits Strength Upper Extremity Strength Assessment Within Functional Limits Lower Extremity Strength Assessment Within Functional Limits Comments Strength Comments BLE grossly 4/5 with no appreciable difference side to side. Coordination Assessment Gross Coordination Gross Coordination WNL Assessment Finger to Nose Test Normal Performance Pronation/Supination Test Normal Performance Sensation Assessment Sensation Gross Sensation WNL Comments Sensation Comments No deficits on exam Muscle Tone Muscle Tone WNL Yes Comments Muscle Tone Comments Negative ankle clonus and Babinski bilaterally. Other Assessments Other Other Assessments BP 182/71 initially in sitting . After five minutes, BP was reassessed at 147/75. After gait, BP was 121/68. Pt denied lightheadedness or headache. Reported VS to RN. M6 PT-IP Treatment Start: 12/13/19 09:09 Freq: NEEDED Status: Active Protocol: Document 12/13/19 11:15 AW (Rec: 12/13/19 12:01 AW [id number]) Physical Therapy Treatment Education Education Provided Safety Other Treatments Other Treatment Performed Educated pt on role of PT, plan of care, and signs of stroke. M7 PT-IP Assessment and Plan Start: 12/13/19 09:09 Freq: NEEDED Status: Active Protocol: Document 12/13/19 11:15 AW (Rec: 12/13/19 12:01 AW [id number]) PT Summary Assessment and Plan Potential Rehabilitation Potential Excellent Status of Condition at Evaluation Stable Summary Impairments Strength,Gait Assessment Summary Em is an 84 yo woman seen for PT evaluation following a left centrum semiovale CVA. At baseline, she is active and independent with all mobility and self-care. She lives alone but has a granddaughter who will be staying with her short -term at discharge. However, the granddaughter will not arrive until tomorrow. On evaluation, pt continues to exhibit right-sided facial droop and has slight tongue deviation to the right. She has a slight right lateral lean in gait but required no assist for ambulation. Her score of 11/12 on modified DGI along with limited history of falling indicates low risk of future falls. Static and dynamic balance were good with pt able to assume tandem stance and to perform heel-toe walking ~10 steps with SBA. Her BP was quite labile with SBP ranging from 182 to 121 but pt was asymptomatic. She will be safe to discharge to her home environment once medically cleared. If she remains in-house, PT will see her once daily for continued balance assessment and training. Goals Gait Goal Independent Gait Distance 500 Other Goals Pt will score 28/30 on Functional Gait Assessment to further demonstrate low risk of falls. Days to Meet Goals 1 Frequency of Treatment Frequency Of Treatment Once a Day Treatment Plan Physical Therapy Treatment Plan Transfer Training,Gait Training,Therapeutic Exercise, Balance Retraining,Discharge Planning,Neuromuscular Re-ed, Coordination Retraining Other Recommendations and Next Treatment FGA, dynamic balance training, Focus assess safety on stairs for community access Recommendations To Nursing Amount of Assist Needed Independent Discharge Recommendations PT Discharge Recommendations Home with Assistance Transportation Needs at Discharge Private Vehicle
--- NOTE | 2019-12-13 13:06 | OT.IP.EVAL ---
Current Diagnoses Cerebral infarction, unspecified (12/12/19) Past Medical History (Last Updated 12/12/19 @ 11:35 by Hailee Tuttle MD) Fx humeral neck (Inactive) Osteoporosis (Acute) Surgical History (Last Updated 12/12/19 @ 11:35 by Hailee Tuttle MD) H/O breast augmentation (Acute) Occupational Therapy Inpatient Evaluation/Re-Eval M1 PT/OT-IP Prior Functional Status Start: 12/13/19 12:35 Freq: NEEDED Status: Active Protocol: Document 12/13/19 12:35 [facility] (Rec: 12/13/19 13:06 [facility] [id number]) Medical Review Prior Functional Status Medical History Reviewed Yes Communication Prior independent. Mobility and Gait Pt is independent with all mobility, requiring no assistive device. She is an active woman who uses her stationary bike at home and treadmill regularly and has no limit to ambulation distance or time. Activities of Daily Living and IADL's Independent, including driving , shopping, meal prep, finances. Prior Functional Level (Other details) Pt reports one injurious fall from a podium ~4 years ago but no falls since that time. Social History Household Members none Living Arrangements House Number of Floors (Floors) Two Floors Number of Stairs To Enter/Railing? Pt's home has a level entry to the main level where she resides. The basement has an apartment which she rents out but she has no need to use the stairs at this time. All needs are located on the main level. 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 Pt has no current renters in her home. Her granddaughter is en route from [place], [place] and is expected to arrive tomorrow to stay with her short-term. She is but her currently resides in [place] and is working on immigrating to live with her. M2 OT-IP Current Condition Start: 04/09/20 12:35 Freq: Status: Active Protocol: Document 12/13/19 12:35 [facility] (Rec: 12/13/19 13:06 [facility] [id number]) Occupational Therapy Current Condition Current Condition Evaluation Date 12/13/19 Treatment Diagnosis Small acute infarct within Left centrum semiovale Diagnosis Onset Date 12/12/19 Weight Bearing Status Weight Bearing Status Weight Bear as Tolerated M3 OT- IP Subjective and Pain Start: 12/13/19 12:35 Freq: Status: Active Protocol: Document 12/13/19 12:35 [facility] (Rec: 12/13/19 13:06 [facility] [id number]) OT- Subjective Occupational Therapy Visit Type Type Initial Evaluation Visit Start Time 11:25 Visit Stop Time 12:29 Total Visit Minutes 64 Occupational Therapy Visit Comments Patient Comments Pt agreeable to do OT eval. Patient/Caregiver Goals To go home. OT Pain Assessment Pain When Pain Assessed At Rest Pain Present Pain Present Denied Pain M4 OT- IP ADL's Start: 12/13/19 12:35 Freq: Status: Active Protocol: Document 12/13/19 12:35 [facility] (Rec: 12/13/19 13:06 [facility] [id number]) OT [id number] Comments OT Self-Feeding Comments Not at meal time, noted right side of her mouth is dropped down. OT ADL-Grooming General Evaluation Grooming Ability Standby Assistance Comments OT Grooming Comments Pt needing vc to remember to brush her hair. OT ADL-Oral Care General Eval Oral Care Ability Independent OT ADL-Dressing General Eval Lower Body Dressing Ability Standby Assistance OT ADL-Toileting Comments OT Toileting Comments Pt states already used the toilet on her own. OT ADL-Bathing Comments OT Bathing Comments Not performed. M5 OT- IP IADL's Start: 12/13/19 12:35 Freq: Status: Active Protocol: Document 12/13/19 12:35 [facility] (Rec: 12/13/19 13:06 [facility] [id number]) OT-Instrumental Activities of Daily Living Home Safety Awareness Awareness of Need for Assistance at Home Decreased Awareness Ability to Problem Solve Emergency Able to Problem Solve Situations Home Safety Comments Pt needing increased time and had word finding difficulties to be able to answer all home safety questions. Medication Management Medication Management Comments Pt states does not take any medication. Pt would benefit from pill organizer or supervision to ensure that she remembers to take her medications. Money Management Money Management Comments Pt would benefit form someone to double check her finances as pt was having difficulty subtracting two digit numbers. Driving Driving Concerns Identified Regarding Safety Driving Comments see below M6 OT- IP Functional Cognition Start: 12/13/19 12:35 Freq: Status: Active Protocol: Document 12/13/19 12:35 [facility] (Rec: 12/13/19 13:06 [facility] [id number]) Cognitive Factors Limiting Selfcare Function Cognitive Ability Level of Alertness Alert,Confusional State Patient Orientation Name,Month,Date,Year,Day of Week,Place,Situation Attention Span Ability Capable of Focused Attention, Unable to Sustain Attention Ability to Follow Commands Able to Follow One Step Commands Memory Description Short Term Impaired Safety Awareness Underestimates Need for Assistance Problem Solving Ability Needs Assist to Identify Solutions Executive Function Ability Unable to Filter Distractions, Unable to Organize Plans, Unable to Remember Details Cognitive Tests SLUMS Pt scored 25/30 , normal score for pt's level of schooling would be 27/30. 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 Pt having difficulty with short term memory and needing instructions repeated multiple times. Pt states that the batteries of her hearing aids are not working and also can make a difference with her comprehension. Pt able to name 12 animals in one minute, unable to repeat 4 digit number backwards, able to recall 4/5 objects after time passed, and not able to draw the hands correctly on the clock after time given. Cognitive Comments Cognitive Assessment Comments Pt a bit distracted and states the time was 6:00 and after cues to correct , pt needing time to figure out that it was actually 11:30. Pt needing increased time and word finding difficulty during conversation. Pt scored 225 second and needing multiple cues to get through the Ajo Making B which assesses mental flexibility, executive thinking, visual attention, and speed of processing which pt now impaired and recommend no driving at this time. Pt agreed that she would not drive. OT- Vision and Hearing OT- Hearing Assessment OT- Hearing Assessment Hearing Impaired,Use of Hearing Aids OT- Vision Assessment Visual Convergence WFL Visual Basurto WFL Vision Assessment Comments Pt states lately not been able to see as clears and thinks that she may need reading glasses. M7 OT- IP Mobility and Balance Start: 12/13/19 12:35 Freq: Status: Active Protocol: Document 12/13/19 12:35 [facility] (Rec: 12/13/19 13:06 [facility] [id number]) OT- Bed Mobility Assessment Rolling Type of Rolling Roll to Left Level of Assistance Independent OT-Transfer Assessment Sit to and From Stand Sit to and from Stand Standby Assistance Transfers Transfer Ability Standby Assistance Devices Transfer Assistive Devices None Comments Mobility Comments Pt able to do bed mobility and walk in the room with distant supervision and no device. OT- Balance Assessment Sitting Balance and Reactions Static Sitting Balance Ability Normal Dynamic Sitting Balance Ability Normal Standing Balance and Reactions Static Standing Balance Ability Good Dynamic Standing Balance Ability Fair M8 OT- IP Objective Assessments Start: 12/13/19 12:35 Freq: Status: Active Protocol: Document 12/13/19 12:35 [facility] (Rec: 12/13/19 13:06 [facility] [id number]) OT Gross Range of Motion Upper Extremity Range of Motion Assessment Within Functional Limits OT Strength Upper Extremity Strength Assessment Right Impaired Comments Strength Comments RUE 4+/5, LUE 5/5 OT- Coordination Assessment Upper Extremity Finger to Nose Test Within Functional Limits OT-Muscle Tone Assessment Muscle Tone WNL Yes M9 OT- IP Assessment and Plan Start: 12/13/19 12:35 Freq: Status: Active Protocol: Document 12/13/19 12:35 [facility] (Rec: 12/13/19 13:06 [facility] [id number]) OT Summary Assessment and Plan Potential Rehabilitation Potential Good Analytic Complexity at Evaluation Low Summary OT Impairments Functional Cognition Progress Towards Goals Progressing Toward Goals Assessment Summary Pt s/p small acute infarct within left centrum semiovale main barrier is decreased short term memory and executive processing. Recommended that pt have someone stay with her until grand daughter able to stay come and stay with her tomorrow. Pt scored 25/30 on the SLUMS which implies mild neurocognitive deficits and scored severe impairment on the Ajo Making Part B which tests for visual attention , task switching, speed of processing, executive function , and speed of processing. At this time recommended no driving and to have supervision form family for finances, IADL and showering initially. Goals Dressing Goal Independent Toileting Goal Independent Bathing Goal Independent Toilet Transfer Goal Independent Shower Transfer Goal Independent Patient/Caregiver Education Goal Caregiver Independent Assisting Patient Days to Meet Goals 1 Frequency of Treatment Frequency Of Treatment Once a Day Treatment Plan OT Treatment Plan Functional Cognition Training, Patient/Family Education, Discharge Planning Discharge Recommendations OT Discharge Recommendations Home with Assistance Transportation Needs at Discharge Private Vehicle
--- NOTE | 2019-12-13 13:54 | CM.DANOTE ---
Discharge Planning/Care Management DCP: assessment: case received and discussed in Team Rounds. OT/PT/[facility] were ordered and Dr. Leach planned a d/c later today if pt was cleared by the therapy team for the home setting. Met now with pt and introduced self and role. Pt is an 84 year old female who admitted yesterday afternoon to care of the hospitalist team. PCP: she clarifies that she had to change providers as the [facility] is no longer covered by [facility]. She is currently assigned to Brian Landaverde/[facility] but has not yet see him for first appt. At time of this meeting PT/OT and [facility] had all seen pt and ok'd her for home. OT did caution pt about not driving while she recovers and pt is discussing this now with Dr. Leach. OT also recommended that pt have someone stay with her until her granddaughter arrives tomorrow from [place]. Pt has talked with a friend who will be picking her up this afternoon and is also arranging to have someone stay with her until her granddaughter arrives. At her request called her pharmacy in [place] to make sure she or the friend could come into the store to hop picker any new medications. They have assured her that this will be fine as long as social distancing is practiced. Dr. Leach is now finalizing the d/c orders. Home today as per above. CM Discharge Assessment Start: 12/13/19 13:53 Freq: Status: Active Protocol: Document 12/13/19 13:53 [facility] (Rec: 12/13/19 13:54 [facility] [id number]) Discharge Planning Assessment Advance Directives? No History Provided By Patient,Medical Record Prior Living Arrangements House Household Members none Type of transporation used prior to Drives own vehicle admit Independent with ADL's Yes Is patient alert and oriented? Yes Review Status In Process
--- NOTE | 2019-12-13 13:58 | P.DS_ITS ---
History of Present Illness History of Present Illness Date Patient Seen: 12/13/19 Time Patient Seen: 13:58 Chief complaint: TIA Narrative: Krista Ryan is an 84-year-old female with remote past medical history of hyperthyroidism but not currently on any medical therapy who presented with a right-sided facial droop since yesterday evening. Patient states that yesterday she felt off most of the day and fatigued. She denied any specific complaints until she looked in the bathroom ear and saw that she had a right-sided facial droop. She was it extremely tired at that time, and according to her she had been drinking so she went to bed. Prior to goi ng to bed she did write her recumbent bike in her home for about 6 miles at full resistance. When she woke up this morning she had continued right-sided facial droop. She does note some difficulty in speaking in word finding, but only minimally. She has a dull diffuse headache, but minimal in severity and now hardly noticeable. She denies any recent chest pains, palpitations, shortness of breath, lower extremity edema, dizziness. She does endorse that this morning she was having difficulty in walking and noticed that she was drifting to the right. In the emergency room, patient was hypertensive, mildly bradycardic. She had an NIH stroke scale of 2. Initial laboratory evaluation the emergency room including CBC, CMP, urine drug screen, urinalysis did not reveal any remarkable abnormal lab findings. Initial head CT was negative for hemorrhage. EKG shows normal sinus rhythm, with flipped T-waves in her lateral leads I, aVL as well as lead II. She was admitted to Medicine for likely an acute CVA. Patient was ordered for loading dose of aspirin and Plavix given stroke scale less than 3 on admission. Discharge Providers Provider Date of admission: 12/12/19 12:57 Discharge Date: 12/13/19 Primary care physician: Monika Amezquita PA-C Consults: 12/12/19 15:04 Consult to Discharge Planning Routine Comment: Consult to Occupational Therapy Evaluate & Treat Comment: Physician Instructions: Evaluate and treat Consult to Physical Therapy Evaluate & Treat Comment: Physician Instructions: Evaluate and Treat Consult to Speech Therapy Evaluate & Treat Comment: Physician Instructions: Evaluate and treat Discharge provider: Salinas Leach DO Summary Hospital Course Discharge Diagnosis: Please see hospital summary by problem list noted below Hospital Course: Krista Ryan is an 84-year-old female with remote past medical history of hyperthyroidism but not currently on any medical therapy who presented with a right-sided facial droop since yesterday evening, She is admitted for likely acute CVA with persistent symptoms. 1. acute CVA, present on admission - - patient presented with right-sided facial droop starting at 6:00 p.m. day prior to admission. Thrombolytics not indicated based on delayed presentation. Patient was loaded with aspirin and Plavix and will continue on dual antiplatelet therapy for a total of 21 days. She will require lifelong aspirin therapy and was started on a high-intensity statin. -MR stroke protocol showed an small subacute infarct within the left centrum semiovale. There was also evidence as per the radiologist that she potentially has a chronic amyloid angiopathy. -no events were noted on telemetry. Echocardiogram showed a normal ejection fraction without evidence of dilated atria. She does appear to have a relaxation abnormality consistent with diastolic disease. However, she does not have any evidence of volume overload on exam, and patient denies shortness of breath at any time. - CT noncontrast on admission did not show any evidence of hemorrhage. -patient had elevated blood pressures on admission, did receive a dose of IV labetalol in the emergency room. Her blood pressures improved but remained elevated. On discharge her blood pressures were in the 150s systolic and she was started on low-dose amlodipine. Further titration as an outpatient with her primary care doctor's recommended. -TSH unremarkable at 3.38. A1c indicative of pre diabetes at 5.8%. Total cholesterol 209, LDL 141, and HDL 50. Patient was started on high-intensity statin therapy as noted above. -patient was seen by PT/OT/speech therapy and is safe for discharge home. It w as recommended given possible cognitive impairment that she not drive. -consider further evaluation as an outpatient with a Holter monitor per PCP discretion. 2. hypertension, unknown chronicity -likely has chronic hypertension given echocardiogram findings consistent with diastolic relaxation abnormalities. -started amlodipine 2.5 mg, further titration recommended as an outpatient with her primary care provider. Status at Discharge Cognitive/behavioral status at discharge: at baseline, oriented Overall status at discharge: patient is progressing back to baseline Time Spent with Patient Time spent: Greater than 30 minutes Exam Vital Signs (past 8 hours): - 12/13/19 08:00 12/13/19 08:30 12/13/19 11:00 Temperature 98.5 F 98.4 F Pulse Rate 54 L 75 Respiratory Rate 18 18 Blood Pressure 142/73 H 149/80 H Pulse Oximetry 97 97 99 12/13/19 12:00 Temperature Pulse Rate Respiratory Rate Blood Pressure Pulse Oximetry 99 Oxygen Delivery Method Room Air Oxygen Flow Rate 0 Narrative Exam Narrative: GENERAL APPEARANCE: Well developed, well nourished, in no acute distress. SKIN: Inspection of the skin reveals no rashes, ulcerations or petechiae. HEENT: Normocephalic atraumatic, extraocular muscles are intact, oropharynx is clear and mucous membranes are moist, neck is supple without adenopathy NECK: Supple and symmetric. There was no thyroid enlargement, and no tenderness, or masses were felt. CHEST: Normal AP diameter and normal contour without any kyphoscoliosis. LUNGS: Auscultation of the lungs revealed no wheezes, rhonchi, or rales. CARDIOVASCULAR: There was a regular rate and rhythm without any murmurs, gallops, rubs. Peripheral pulses were 2+ and symmetric. ABDOMEN: Soft and nontender with normal bowel sounds. No ascites was noted. MUSCULOSKELETAL: There was no tenderness or effusions noted. Muscle strength and tone were normal. EXTREMITIES: No cyanosis, clubbing or edema. NEUROLOGIC: Alert and oriented x 3. Normal affect. Poor short term memory and possible mild cognitive impairment. Gait was not assessed. Heel to fernandez unremarkable, finger to nose unremarkable, no inattention. Minimal facial asymmetry on the right which is improved today. No evident speech difficulties on my exam. Objective Labs Result Diagrams: 12/13/19 05:30 12/13/19 05:30 Labs: Laboratory Results - last 24 hr 12/13/19 12/13/19 12/13/19 05:30 05:30 05:30 WBC 5.5 RBC 4.26 Hgb 13.0 Hct 39.6 MCV 92.9 MCH 30.6 MCHC 32.9 RDW 13.8 Plt Count 265 Neut % (Auto) 52.3 Lymph % (Auto) 32.4 Gibson % (Auto) 11.0 Eos % (Auto) 3.6 Baso % (Auto) 0.7 Neut # (Auto) 2900 Lymph # (Auto) 1800 Gibson # (Auto) 600 Eos # (Auto) 200 Baso # (Auto) 0 Sodium 136 L Potassium 4.1 Chloride 106 Carbon Dioxide 28 BUN 15 Creatinine 0.59 Estimated GFR > 60.0 BUN/Creatinine Ratio 25.4 H Glucose 101 Hemoglobin A1c 5.8 Calcium 8.9 Magnesium 2.2 Triglycerides 88 Cholesterol 209 H LDL Cholesterol, Calc 141 H HDL Cholesterol 50 TSH 12/13/19 05:30 WBC RBC Hgb Hct MCV MCH MCHC RDW Plt Count Neut % (Auto) Lymph % (Auto) Gibson % (Auto) Eos % (Auto) Baso % (Auto) Neut # (Auto) Lymph # (Auto) Gibson # (Auto) Eos # (Auto) Baso # (Auto) Sodium Potassium Chloride Carbon Dioxide BUN Creatinine Estimated GFR BUN/Creatinine Ratio Glucose Hemoglobin A1c Calcium Magnesium Triglycerides Cholesterol LDL Cholesterol, Calc HDL Cholesterol TSH 3.38 Discharge Plan Discharge Plan Patient Disposition: Home Discharge comment: You were admitted to the hospital with a small stroke. You were started on appropriate medications. Your blood pressure was slightly high and you will be prescribed a medication upon discharge. Please follow up with your primary care provider as soon as possible, possibly with a telehealth visit to discuss your therapy going forward. Discharge orders & Medications Prescriptions: New aspirin 81 mg Tablet,Delayed Release (Dr/Ec) 81 mg PO DAILY 30 Days Qty: 30 RF: 0 atorvastatin 80 mg tablet 80 mg PO BEDTIME 30 Days Qty: 30 RF: 0 clopidogrel 75 mg Tablet 75 mg PO DAILY 21 Days Qty: 21 RF: 0 amlodipine 2.5 mg tablet 2.5 mg PO DAILY 30 Days Qty: 30 RF: 0 No Action No Known Home Medications RF: 0 Follow up/Referrals: Monika Amezquita PA-C [Primary Care Provider] - Discharge Health Status Health Concerns: Acute CVA, HTN, HLD Diet/Activity/Treatments Diet: Diet as Tolerated Activity: As tolerated. No driving recommended per OT until further evaluation as an outpatient. Visit Report/Discharge Packet Instructions: Left-side Stroke, Aspirin, Amlodipine (By mouth), Atorvastatin (By mouth), Clopidogrel (By mouth) Discharge Data Primary Care Provider: Monika Amezquita Quality VTE Deep Vein Thrombosis/Pulmonary Embolism Present on Admission: No
--- NOTE | 2019-12-13 14:28 | ST.IPSLE ---
Visit Care Team Role Provider Type Monika Amezquita PA-C Primary Care Provider Physician Specialty: Internal Medicine Address: [address] [place] [address], [id number] Email: [email or web address] Hailee Tuttle MD Emergency Provider Physician Referring Provider Specialty: Emergency Medicine Address: [address] [place] [address], [id number] Email: Salinas Leach DO Admit Provider Physician Attending Provider Specialty: Internal Medicine Address: [address] [place] [address], [id number] Email: [email or web address] Diagnoses Cerebral infarction, unspecified (12/12/19) Past Medical History (Last Updated 12/12/19 @ 11:35 by Hailee Tuttle MD) Fx humeral neck (Inactive Medical) Osteoporosis (Acute Medical) Speech-Language Pathology Speech/Language Eval MANUFACTURING ENGINEER MACHINING Language Evaluation Start: 12/13/19 13:30 Freq: Status: Active Protocol: Document 12/13/19 13:31 LL (Rec: 12/13/19 14:27 LL [id number]) Language Evaluation Session Time Visit Start Time 12:20 Visit Stop Time 12:50 Total Visit Minutes 30 Referral Referring Physician Salinas Leach DO Reason for Referral Stroke Protocol - TIA Language Evaluation Assessment Type Comprehensive speech-language evaluation Past Medical History Patient History Per Dr. Leach's history and physical report, Krista Ryan is an 84-year-old female with remote past medical history of hyperthyroidism but not currently on any medical therapy who presented with a right-sided facial droop since yesterday evening. Patient states that yesterday she felt off most of the day and fatigued. She denied any specific complaints until she looked in the bathroom ear and saw that she had a right- sided facial droop. She was it extremely tired at that time, and according to her she had been drinking so she went to bed. Prior to going to bed she did write her recumbent bike in her home for about 6 miles at full resistance. When she woke up this morning she had continued right-sided facial droop. She does note some difficulty in speaking in word finding, but only minimally. She has a dull diffuse headache, but minimal in severity and now hardly noticeable. She denies any recent chest pains, palpitations, shortness of breath, lower extremity edema, dizziness. Medical History: Fx humeral neck (Inactive) Osteoporosis (Acute) Hearing Hearing Level Hearing Aids Auditory History Patient reported that her hearing aid batteries are not currently working, which can impact her comprehension. Vision Comments OT reported monovision. [place] Language Language(s) Spoken in the Home [place] Educational Status Education Level N/A Occupational Status Occupation Status Retired Previous Therapy Previous Speech-Language Therapy No Oral Motor Examination Oral Motor Exam Completed Yes Results Patient presented with mild right sided facial weakness / slight droop and lingual incoordination. Previous notes stated left and right side lingual deviation, however, MANUFACTURING ENGINEER MACHINING did not observe any lingual deviation during oral motor examination. Patient reported that her right sided facial weakness is improving daily. MANUFACTURING ENGINEER MACHINING provided patient with a oral-facial exercise handout to practice at home to improve right sided facial weakness and lingual coordination/ROM. Subjective Subjective Patient alert, oriented x 4, and agreeable to complete ST evaluation. - Informal Assessment Receptive Language Normal Yes Expressive Language Normal Yes Articulation Normal No: mild dysarthria Cognition Normal No: OT reported SLUMS results 25/30 - Mild Cognitive Impairment Assessment Findings Patient presented with mild dysarthria most likely due to right sided facial weakness / facial droop from TIA. Patient 's speech was 95-100% intelligible during structured and unstructured speech tasks (e.g., conversation, automatic speech tasks). MANUFACTURING ENGINEER MACHINING noted minimal slurred speech during automatic speech tasks. Per OT's evaluation report, patient scored 25/30 on the SLUMS which implies mild neurocognitive deficits and scored severe impairment on [place] Making Part B, which tests for visual attention, task switching, processing speech, and executive functioning skills. Patient reported that she has noticed increased word finding difficulty over the past several months. Patient experienced no difficulty on responsive naming and convergent naming tasks. Per observation and report from OT , patient presented with short term memory and sustained attention deficits. Recommendations MANUFACTURING ENGINEER MACHINING provided patient with a compensatory speaking strategy handout to utilize in order to repair any communication breakdowns and increase speech intelligibility. MANUFACTURING ENGINEER MACHINING also provided patient with 2 word finding strategy handouts to implement strategies when experiencing word finding difficulty (anomia). - Receptive Language Yes/No Questions Skill Level WF Following Directions - Verbal Skill Level WFL Defining Words Skill Level WFL Auditory Comprehension Skill Level WFL Reading Comprehension Skill Level WFL Receptive Language Comments Receptive Language Comments Patient presented within functional limits on all receptive language subtests. Patient required 1-2 repetitions of questions/ commands due to hearing impairment/difficulty. - Expressive Language Automatic Speech Skill Level Mildly Impaired Sentence Closure Skill Level WFL Object Naming Skill Level WFL Stating Functions Skill Level WFL Oral Expression Skill Level WFL Expressive Language Comments Expressive Language Comments Patient presented with mild difficulty on automatic speech tasks (e.g., counting 1-20, ABCs, [place], LAMIN - increased rate of speech during this task). Patient's speech intelligibility increased (100 %) when cued to slow down and speak clearly. - Findings Language Findings Patient presents with mild dysarthria, mild-mod word- finding difficulty, mild attention deficit, and mild- mod short-term memory deficit/ impairment. Because of patient ?s age, her short-term memory and word-finding deficits may be age related. Recommendations Recommendations ST follow up as indicated with change in condition. Patient is scheduled to discharge today. MANUFACTURING ENGINEER MACHINING informed patient to call outpatient services if mild dysarthria does not improve as well as if word finding, attention, and short- term memory difficulties worsen. Patient verbalized understanding and agreement with recommendations.
[2019-12-13] MEDS: AMLODIPINE 2.5 MG TABLET PO (14:42)
--- NOTE | 2019-12-13 14:49 | ST.IPCSEOM ---
Visit Care Team Role Provider Type Monika Amezquita PA-C Primary Care Provider Physician Specialty: Internal Medicine Address: [address] [place] [address], [id number] Email: [email or web address] Hailee Tuttle MD Emergency Provider Physician Referring Provider Specialty: Emergency Medicine Address: [address] [place] [address], [id number] Email: Salinas Leach DO Admit Provider Physician Attending Provider Specialty: Internal Medicine Address: [address] [place] [address], [phone] Email: [email or web address] Diagnoses Cerebral infarction, unspecified (12/12/19) Past Medical History (Last Updated 12/12/19 @ 11:35 by Hailee Tuttle MD) Fx humeral neck (Inactive Medical) Osteoporosis (Acute Medical) Speech-Language Pathology Swallow Evaluation SENIOR GAME DEVELOPER Clinical Swallow Evaluation Start: 12/13/19 13:30 Freq: Status: Active Protocol: Document 12/13/19 14:29 LL (Rec: 12/13/19 14:46 LL [id number]) Clinical Swallow Evaluation Session Time Visit Start Time 12:50 Visit Stop Time 13:10 Total Visit Minutes 20 Referral Referring Physician Salinas Leach DO Reason for Referral Stroke protocol - TIA Setting Assessment Location Acute Care Visit Type Note Type Initial Evaluation Patient Information Identification Type Name,ID Wristband History Per Dr. Leach's history and physical report, Krista Ryan is an 84-year-old female with remote past medical history of hyperthyroidism but not currently on any medical therapy who presented with a right-sided facial droop since yesterday evening. Patient states that yesterday she felt off most of the day and fatigued. She denied any specific complaints until she looked in the bathroom ear and saw that she had a right- sided facial droop. She was it extremely tired at that time, and according to her she had been drinking so she went to bed. Prior to going to bed she did write her recumbent bike in her home for about 6 miles at full resistance. When she woke up this morning she had continued right-sided facial droop. She does note some difficulty in speaking in word finding, but only minimally. She has a dull diffuse headache, but minimal in severity and now hardly noticeable. She denies any recent chest pains, palpitations, shortness of breath, lower extremity edema, dizziness. Medical History: Fx humeral neck (Inactive) Osteoporosis (Acute) Subjective Observations Patient alert, oriented x 4, and agreeable to complete clinical swallow evaluation. Evaluation Liquids Trialed Thin Solids Trialed Puree,Mechanical Soft,Regular Administration Type Tea Spoon,Cup Single Sip, Controlled Cup Sip,Cup Consecutive Sips,Straw,Self- Feeding Oral Impairment WFL Oral Strategies Upright at 90 degrees, Controlled Bite/Sip Size Oral Phase Comments Patient presented with R sided facial weakness/facial droop, however, weakness did not impact patient's oral prep or oral phase for safe swallowing . Oral phase was within functional limits. Pharyngeal Impairment WFL Pharyngeal Strategies Sitting Upright (90 deg),Small Bites and Sips Pharyngeal Phase Comments Pharyngeal phase was within functional limits. Patient presented with adequate hyolaryngeal elevation and no overt s/sx of aspiration was observed on all consistencies trialed. Findings Dysphagia Type Swallowing WFL Rehabilitation Potential Good Impressions Patient trialed with lunch tray items (e.g., chocolate pudding, soup, rosanne cracker with peanut butter, water, apple juice, and egg salad). Patient was placed on mechanical soft diet and thin liquids before ST evaluation was completed. Patient presented with no overt s/sx of aspiration across all consistencies trialed. Though patient has R sided facial weakness, it does not impact patient's swallowing abilities. It is recommended that patient be placed on a regular consistency diet and thin liquids with use of general swallowing precautions (e.g., upright at 90 degrees and small bites/sips), to improve protection of airway and reduce risk of aspiration. Diet Recommendations Liquids Order Thin Diet Order Regular Medication Recommendations As Tolerated,Whole Additional Dietary Needs Controlled Sips Aspiration Precautions Recommended Precautions Upright at 90 Degrees,Small Bites/Sips Treatment Plan Placement Recommendations after Home Discharge Therapy Recommendations ST follow up as indicated with change in condition. Patient is scheduled to discharge today. SENIOR GAME DEVELOPER provided patient with a oral-facial exercise handout to practice at home to improve right sided facial weakness.
--- NOTE | 2019-12-13 15:14 | PC.NURSE ---
Pt d/c'd to home per order. Provided d/c packet, educational materials, and verbal instruction. Pt verbalized understanding. Administered PO amlodpine prior to d/c. Instructed pt to call to make f/u appt with PCP of her choice through [facility]. She verbalizes understanding. Provided education on med regimen, next dose due, monitoring parameters, side effects. Provided stroke education. Pt dressed herself. She transferred independently to w/c and was taken to POV by CHIEF RADIATION THERAPIST in no acute distress with all belongings at 1500.
--- NOTE | 2020-02-14 08:57 | CM.DPNOTE ---
This patient reached out to me via phone yesterday and then sent me the below letter via email. I discussed this patient/mahamed with Dr. Leach and we both believe that it is very important that this pt. make her request from her PCP. I called this pt. this am to discuss our thoughts and she informed me that her friend is a [employer] and refills her prescriptions. However, her friend doesn't actually see her. I recommended that the patient follow up with [facility] - as recommended in her discharge paperwork and CM notes. She needs a PCP to follow her BP concerns and general well-being during this stressful time in her life. She agreed that this is a marie plan and said she'd, get that going Below is the letter she sent me via email. Dear Mrs. Valdes: On December 18 I was admitted through the Emergency Dept at [facility] with the diagnosis of Minor Lft Side Stroke. I was discharged home the following day with residual efffects from the stroke under the assumption that my granddaughter from [place] would fly down to be with me since I have no other family in the area. I assured your staff that a neighbor who is a nurse would stay with me overnight. Unfortunately [place] [employer] had just discontinued service to [place] because of COVid-19. I have managed fairly well at home alone but am finding that I need help to remain supported and safe. My , Salinas Rodriguez, is a [place] citizen in the final process of applying for green card access to the [place] and is in [facility] awaiting an interview with the [place]. As you know, the border is currently closed between the two countries. I have been anticipating his return to be able to help oversee my home care. I understand that a letter from your department or the provider who signed my discharge order detailing the scope of admission, residual needs and medications is likely to allow him [place] entry as soon as possible. Please let me know if you can help me? My number is [phone] or I can be reached at e mail [email or web address] If you can send a letter to me requesting his return home to assist in my care would be very helpful. The address is [address], [facility] [address], [place] [address]. Sincerely,
== END 2019-12-13 15:00 | disposition home or self-care (01) | DRG 65 ==
LOC: ED 11:32 → AC 12:58
PROVIDERS: Admitting Provider Internal Medicine; Emergency Provider Emergency Medicine; PCP Student in an Organized Health Care Education/Training Program; Referring Provider Emergency Medicine; Visit Provider Internal Medicine
DX: I63.9 Cerebral infarction, unspecified (principal); E85.4 Organ-limited amyloidosis; R29.810 Facial weakness; I68.0 Cerebral amyloid angiopathy; I10 Essential (primary) hypertension
CPT/HCPCS: 36415; 70450; 70548; 70553; 80048; 80053; 80061; 80305; 81001; 82962; 83036; 83735; 84443; 85025; 85610; 85730; 92523; 92610; 93005; 93306; 97161; 97165; 97530; 99285; J1650

== ENCOUNTER 2019-12-14 18:00 | Emergency (ER) | payer OTHER, SELFPAY ==
[2019-12-12 17:16] VITALS: BMI 25.0
[2019-12-14] VITALS (8 sets, daily range): BP systolic 182–212; BP diastolic 77–93; PULSE 66–99; RESP 14–27; TEMP 37.1; O2SAT 94–100; BMI 24.7
--- NOTE | 2019-12-14 18:37 | PC.NURSE ---
Pt recently DC'd from acute care after L sided CVA 12/11. was placed on amlodopine 2.5mg for HTN. states she has been taking all her meds as directed. today was taking her BP and noticed it was elevating over the course of the day. currently 195-200/systolic. reports dull headache. denies CP, SOB, =bell ringer/pushes, 2+ strength, ambulatory, AAOx3, NSR 70's. Lungs clear. denies cough,fever. placed on cardiac monitoring, IV placed and labs sent. awaiting MD assessment.
[2019-12-14 18:47] LABS: Add Manual Diff / Slide Review NO; Basophils Absolute Auto 0 /uL (0-100); Basophils Percent Auto 0.5 % (0-2); Eosinophils Absolute Auto 200 /uL (0-450); Eosinophils Percent Auto 2.4 % (2-4); Hematocrit 41.4 % (36-46); INR 1.1 (0.9-1.3); Lymphocytes Absolute Auto 1500 /uL (1100-4500); Mean Corpuscular HGB Conc 33.9 % (30-36); Mean Corpuscular Hemoglobin 31.4 PG (26-34); Mean Corpuscular Volume 92.6 fL (80-100); Monocytes Absolute Auto 600 /uL (0-900); Monocytes Percent Auto 9.1 % (3-14); Neutrophils Absolute Auto 4300 /uL (1500-7000); Platelet Count 266 X10^3/uL (150-400); Prothrombin Time 12.2 SECONDS (10.1-12.7); Red Blood Cell Count 4.47 X10^6/uL (4.0-5.2); White Blood Cell Count 6.6 X10^3/uL (4.5-11.0)
[2019-12-14 18:52] LABS: Alanine Aminotransferase 14 IU/L (<35); Albumin 4.2 g/dL (3.5-5.0); Albumin Globulin Ratio 1.3 (1.0-2.8); Alkaline Phosphatase 66 U/L (38-126); Aspartate Aminotransferase 33 IU/L (14-36); BUN Creatinine Ratio 32.4 (6-22); Bilirubin Total 0.5 mg/dL (0.2-1.3); Blood Urea Nitrogen 24 mg/dL (7-17); Calcium 9.6 mg/dL (8.4-10.2); Carbon Dioxide 30 mmol/L (22-32); Chloride 103 mmol/L (98-107); Estimated Glomerular Filt Rate > 60.0 mL/min (>60); Globulin 3.3 g/dL (1.7-4.1); Glucose 96 mg/dL (80-110); HEMOLYSIS 18 (0-50); Potassium 4.7 mmol/L (3.4-5.1); Sodium 138 mmol/L (137-145); Total Protein 7.5 g/dL (6.3-8.2)
[2019-12-14 19:29] LABS: Creatine Kinase 43 U/L (30-135)
[2019-12-14] MEDS: AMLODIPINE 2.5 MG TABLET PO (19:40)
[2019-12-14 19:42] LABS: Troponin I < 0.012 ng/mL (0.01-0.034)
--- NOTE | 2019-12-14 21:26 | ED.GENADULT ---
HPI - General Adult <TILA Greene - Last Filed: 12/14/19 22:34> General Chief complaint: Hypertension Stated complaint: states elevated blood pressure Time Seen by Provider: 12/14/19 19:00 Source: patient Mode of arrival: Ambulatory Limitations: no limitations History of Present Illness HPI narrative: This is a 84 year female, nonsmoker, who presents to ED with elevated blood pressure reading at home. Patient was admitted to on 12/12/2019 overnight with right side facial droops and workup TIA/stroke. Patient has Patient was admitted to hospital Patient denies chest pain, breathing difficulty, weakness to extremities, speech difficulty, dizziness, balance difficulty. Patient reports when she arrived to ED D other day she had elevated blood pressure greater than 220 in systolic and she received medication which is slowly decreased blood pressure. She currently lives alone since her is in [place] and is not able to return home for another 1 month. She has been very busy trying to arrange/organized help around the house with multiple phone calls and texts today. When patient was discharged to home, she started on new medications high dose Atorvastatin, Plavix, ASA, and low dose of amlodipine and 2.5 mg for elevated blood pressure. When she was in hospital, her systolic blood pressure was ranging from 150s to 170s. Patient start taking amlodipine at bedtime last night. She monitored her blood pressure throughout today. Initial blood pressure at 7 a.m. was 145 in systolic, at noon it was 150 and this afternoon after a short period of rest patient noticed her blood pressure increased to 190s. She called EMS and noticed at rest BP was 140's but it increased to 190's when she was up. Patient reports mild head pressure but states it is not like pain. Patient states her vision has been little bit more blurry recently. Patient has history of osteoporosis. Related Data Previous Rx's Medication Instructions Recorded amlodipine 2.5 mg PO DAILY 30 Days #30 tab 12/13/19 aspirin 81 mg PO DAILY 30 Days #30 tab 12/13/19 atorvastatin 80 mg PO BEDTIME 30 Days #30 tab 12/13/19 clopidogrel 75 mg PO DAILY 21 Days #21 tab 12/13/19 Allergies Allergy/AdvReac Type Severity Reaction Status Date / Time No Known Drug Allergies Allergy Verified 12/14/19 18:10 Review of Systems <TILA Greene - Last Filed: 12/14/19 22:34> Review of Systems Narrative: General: Denies fever, chills, fatigue, malaise, sweats. HEENT: Denies sinus pain, ear pain, sore throat, difficulty swallowing, dizziness. Respiratory: Denies dyspnea, cough, wheezing, hemoptysis, sputum. Cardiovascular: Denies chest pain, palpitations, orthopnea, edema. Gastrointestinal: Denies nausea, vomiting, abdominal pain, diarrhea, constipation, melena. : Denies dysuria, frequency, incontinence, hematuria, urinary retention. Musculoskeletal: Denies weakness, joint pain or bony pain. Skin: Denies rash, skin lesions, or other. Neurologic: Denies weakness, (+) head pressure, numbness, change in speech, confusion, seizures, incoordination. Psychiatric: No concerning psychosocial issues. 12-point review of systems is negative except for those stated above. Patient History <TILA Greene - Last Filed: 12/14/19 22:34> Medical History Fx humeral neck (Inactive) Osteoporosis (Acute) Surgical History H/O breast augmentation (Acute) Social History household members: none Smoking Status: Never smoker alcohol intake: never Smoking Status: Never smoker Substance Use Type: does not use Exam <TILA Greene - Last Filed: 12/14/19 22:34> Narrative Exam Narrative: GEN: Alert, oriented x 3, well appearing and nourished, and in no acute distress. Head: Normal cephalic, atraumatic. No scalp or temporal tenderness, palpable mass or rash. EYES: Pupils are equal, round, and reactive to light and accommodation. Extraocular muscles are intact bilaterally. There is no subconjunctival hemorrhage, exudate and sclera non-icteric. ENT: Bilateral auditory canals and tympanic membranes clear. Hearing grossly intact. Nose without bleeding, purulent discharge, septal hematoma or deviation. Turbinate without erythema or swelling. Facial sinuses nontender to palpate. Mucous membrane moist, no mucosal lesion. Throat without erythema, tonsillar hypertrophy or exudate. Uvula in midline, airway patent. Neck: Trachea in midline. No JVD, non-tender without lymphadenopathy. No masses or thyroid megaly. Supple, non-tender and no meningeal signs. CARDIAC: Normal regular rate and rhythm without murmurs, gallops, or rubs. No chest wall tenderness. No peripheral edema, cyanosis or pallor. Capillary refill is less than 2 seconds. No carotid bruits. RESPIRATORY: Lungs are cleat to auscultate bilaterally. No cough, wheezes, rales, or rhonchi. No stridor, respiratory distress, increase work of breathing, or accessary muscle used. ABD: Abdomen soft, nontender and non-distended. No guarding or rebound tenderness to palpate. Bowel sounds are normal in all 4 quadrants. There is no palpable masses or organomegaly. EXT: Full painless ROM of all extremities with no loss of sensation, strength, effusion or edema. SKIN: Warm, dry, normal color for patient. No erythema, lesions or rash. BACK: Nontender without deformity or crepitance. No flank tenderness. NEUROLOGICAL: Alert and oriented to place, time and person. Mild right-sided facial asymmetry, no dysphasia. CN II-XII intact. Strength and sensation symmetric and intact throughout. Cerebellar testing normal. PSYCHIATRIC: Good judgement and reason, without hallucinations, abnormal affect or abnormal behaviors during the examination. Initial Vital Signs Initial Vital Signs: Vital Signs Pulse Rate 99 H 12/14/19 18:10 Respiratory Rate 14 12/14/19 18:10 Pulse Oximetry 100 12/14/19 18:10 <Yamilex Claros DO - Last Filed: 12/15/19 02:56> Initial Vital Signs Initial Vital Signs: Vital Signs Pulse Rate 99 H 12/14/19 18:10 Respiratory Rate 14 12/14/19 18:10 Pulse Oximetry 100 12/14/19 18:10 Scores <TILA Greene - Last Filed: 12/14/19 22:34> GCS Bran coma scale eye opening: Spontaneous Bran coma scale verbal response: Orientated [place] coma scale motor response: Obey commands Bran coma scale total score: 15 NIH Stroke Scale Level of Conciousness: Alert, keenly responsive Ask month/age: Answers both questions correctly. Open/close eyes, close hand: Performs both tasks correctly Best gaze horizontal: Normal Visual styles: No visual loss Facial palsy: Minor paralysis, flattened nasolabial fold, asymmetry on smiling Left arm drift: No drift for full 10 sec Right arm drift: No drift for full 10 sec Left leg drift: No drift for full 10 sec Right leg drift: No drift for full 10 sec Limb ataxia: Absent Sensory on face/arms/legs: Normal, no sensory loss Best language: No aphasia, normal Dysarthria: Normal Extinction or inattention: No abnormality Total NIH Stroke scale score: 1 Course <TILA Greene - Last Filed: 12/14/19 22:34> Orders Ordered: ED Orders 12/14/19 18:30 Complete Blood Count AUTO DIFF Stat Comprehensive Metabolic Panel Stat Prothrombin Time INR Stat Troponin & CK Cardiac Panel Stat 12/14/19 18:36 EKG-12 Lead Stat Discontinued Medications Amlodipine Besylate (Norvasc) 2.5 mg PO NOW ONE Stop: 12/14/19 19:32 Last Admin: 12/14/19 19:40 Dose: 2.5 mg Documented by: MERY Vital Signs Vital signs: Vital Signs - 8 hr 12/14/19 19:30 12/14/19 20:10 12/14/19 21:07 Pulse Rate 74 66 68 Respiratory Rate 27 H 20 16 Blood Pressure Blood Pressure [Left Arm] 182/77 H 194/81 H 193/84 H Pulse Oximetry 94 94 97 12/14/19 21:30 12/14/19 22:11 Pulse Rate 68 73 Respiratory Rate 24 16 Blood Pressure 189/86 H Blood Pressure [Left Arm] 185/88 H Pulse Oximetry 97 97 <Yamilex Claros DO - Last Filed: 12/15/19 02:56> Orders Ordered: ED Orders 12/14/19 18:30 Complete Blood Count AUTO DIFF Stat Comprehensive Metabolic Panel Stat Prothrombin Time INR Stat Troponin & CK Cardiac Panel Stat 12/14/19 18:36 EKG-12 Lead Stat Discontinued Medications Amlodipine Besylate (Norvasc) 2.5 mg PO NOW ONE Stop: 12/14/19 19:32 Last Admin: 12/14/19 19:40 Dose: 2.5 mg Documented by: MERY Vital Signs Vital signs: Vital Signs - 8 hr 12/14/19 19:30 12/14/19 20:10 12/14/19 21:07 Pulse Rate 74 66 68 Respiratory Rate 27 H 20 16 Blood Pressure Blood Pressure [Left Arm] 182/77 H 194/81 H 193/84 H Pulse Oximetry 94 94 97 12/14/19 21:30 12/14/19 22:11 Pulse Rate 68 73 Respiratory Rate 24 16 Blood Pressure 189/86 H Blood Pressure [Left Arm] 185/88 H Pulse Oximetry 97 97 Medical Decision Making <TILA Greene - Last Filed: 12/14/19 22:34> Differential Diagnosis Differential Diagnosis: Elevated blood pressure, stroke Medical Records Medical records reviewed: Yes I reviewed the patient's medical records. Lab Data Lab results reviewed: Yes I reviewed the patient's lab results. Result diagrams: 12/14/19 18:30 12/14/19 18:30 Labs: Lab Results 12/14/19 12/14/19 12/14/19 Range/Units 18:30 18:30 18:30 WBC 6.6 (4.5-11.0) X10^3/uL RBC 4.47 (4.0-5.2) X10^6/uL Hgb 14.0 (12.0-16.0) g/dL Hct 41.4 (36-46) % MCV 92.6 (80-100) fL MCH 31.4 (26-34) PG MCHC 33.9 (30-36) % RDW 14.0 (11.6-14.8) % Plt Count 266 (150-400) X10^3/uL Neut % (Auto) 65.0 (50-75) % Lymph % (Auto) 23.0 L (25-40) % [place] % (Auto) 9.1 (3-14) % Eos % (Auto) 2.4 (2-4) % Baso % (Auto) 0.5 (0-2) % Neut # (Auto) 4300 (3642-6481) /uL Lymph # (Auto) 1500 (7801-7003) /uL [place] # (Auto) 600 (0-900) /uL Eos # (Auto) 200 (0-450) /uL Baso # (Auto) 0 (0-100) /uL PT 12.2 (10.1-12.7) SECONDS INR 1.1 (0.9-1.3) Sodium 138 (137-145) mmol/L Potassium 4.7 (3.4-5.1) mmol/L Chloride 103 (98-107) mmol/L Carbon Dioxide 30 (22-32) mmol/L BUN 24 H (7-17) mg/dL Creatinine 0.74 (0.52-1.04) mg/dL Estimated GFR > 60.0 (>60) mL/min BUN/Creatinine Ratio 32.4 H (6-22) Glucose 96 (80-110) mg/dL Calcium 9.6 (8.4-10.2) mg/dL Total Bilirubin 0.5 (0.2-1.3) mg/dL AST 33 (14-36) IU/L ALT 14 (<35) IU/L Alkaline Phosphatase 66 (38-126) U/L Total Creatine Kinase (30-135) U/L CK-MB (CK-2) CK-MB (CK-2) Rel Index Troponin I (0.01-0.034) ng/mL Total Protein 7.5 (6.3-8.2) g/dL Albumin 4.2 (3.5-5.0) g/dL Globulin 3.3 (1.7-4.1) g/dL Albumin/Globulin Ratio 1.3 (1.0-2.8) 04/10/20 Range/Units 18:30 WBC (4.5-11.0) X10^3/uL RBC (4.0-5.2) X10^6/uL Hgb (12.0-16.0) g/dL Hct (36-46) % MCV (80-100) fL MCH (26-34) PG MCHC (30-36) % RDW (11.6-14.8) % Plt Count (150-400) X10^3/uL Neut % (Auto) (50-75) % Lymph % (Auto) (25-40) % [place] % (Auto) (3-14) % Eos % (Auto) (2-4) % Baso % (Auto) (0-2) % Neut # (Auto) (9500-3808) /uL Lymph # (Auto) (0551-2415) /uL [place] # (Auto) (0-900) /uL Eos # (Auto) (0-450) /uL Baso # (Auto) (0-100) /uL PT (10.1-12.7) SECONDS INR (0.9-1.3) Sodium (137-145) mmol/L Potassium (3.4-5.1) mmol/L Chloride (98-107) mmol/L Carbon Dioxide (22-32) mmol/L BUN (7-17) mg/dL Creatinine (0.52-1.04) mg/dL Estimated GFR (>60) mL/min BUN/Creatinine Ratio (6-22) Glucose (80-110) mg/dL Calcium (8.4-10.2) mg/dL Total Bilirubin (0.2-1.3) mg/dL AST (14-36) IU/L ALT (<35) IU/L Alkaline Phosphatase (38-126) U/L Total Creatine Kinase 43 (30-135) U/L CK-MB (CK-2) TNP CK-MB (CK-2) Rel Index TNP Troponin I < 0.012 (0.01-0.034) ng/mL Total Protein (6.3-8.2) g/dL Albumin (3.5-5.0) g/dL Globulin (1.7-4.1) g/dL Albumin/Globulin Ratio (1.0-2.8) ECG Data Attestation: I personally reviewed and interpreted this ECG as follows: Prior ECG tracings: available for review Interpretation: Sinus rhythm rate at 70. Right [place] dominant. Poor R progression No ST elevation or depression. No significant changes from previous EKG. CA int 158, QRS dur 78, QT/QTc 389/409. MDM Narrative Medical decision making narrative: This is a 84 year female who was recently diagnosed with TIA 2 days ago return to ED with elevated blood pressure reading at home. Patient just started amlodipine 2.5 mg at night dose since yesterday. She has been monitoring blood pressure throughout the day and noticed her blood pressure was greater than 190 in systolic without symptoms such as chest pain, breathing difficulty, neurological deficit and she took her night dose a bit early tonight at 4:30 a.m. before coming into ED. patient's blood pressure was elevated and the highest was 212/93 when she arrived to ED. patient was given additional dose of amlodipine 2.5 mg in ED as it was recommended to titrate amlodipine for her blood pressure in outpatient setting. Patient informed that she had an TIA from a blockage and not hemorrhaging type. Patient had questions about blood thinner and explained to patient that she had started on Plavix and also Atorvastatin for plaques when patient appreciated the information. Patient states she had a stressful day today to arrange home assistance for her since she is currently living alone until her gets back to town from [place] due to Covid-19. Patient was continuously on the phone or texting even while in ED to communicate with family members. Advised patient to relax and shortly after patient's blood pressure has improved to 185/88. Return precautions were discussed with the patient and patient verbalized understanding and agreement with treatment plan. Advised to follow with Dr. Colindres since next few days to follow-up on blood pressure and hypertensive medications. <Yamilex Claros, DO - Last Filed: 12/15/19 02:56> Lab Data Lab results reviewed: Yes I reviewed the patient's lab results. Labs: Lab Results 12/14/19 12/14/19 12/14/19 Range/Units 18:30 18:30 18:30 WBC 6.6 (4.5-11.0) X10^3/uL RBC 4.47 (4.0-5.2) X10^6/uL Hgb 14.0 (12.0-16.0) g/dL Hct 41.4 (36-46) % MCV 92.6 (80-100) fL MCH 31.4 (26-34) PG MCHC 33.9 (30-36) % RDW 14.0 (11.6-14.8) % Plt Count 266 (150-400) X10^3/uL Neut % (Auto) 65.0 (50-75) % Lymph % (Auto) 23.0 L (25-40) % [place] % (Auto) 9.1 (3-14) % Eos % (Auto) 2.4 (2-4) % Baso % (Auto) 0.5 (0-2) % Neut # (Auto) 4300 (7173-2505) /uL Lymph # (Auto) 1500 (6674-7316) /uL [place] # (Auto) 600 (0-900) /uL Eos # (Auto) 200 (0-450) /uL Baso # (Auto) 0 (0-100) /uL PT 12.2 (10.1-12.7) SECONDS INR 1.1 (0.9-1.3) Sodium 138 (137-145) mmol/L Potassium 4.7 (3.4-5.1) mmol/L Chloride 103 (98-107) mmol/L Carbon Dioxide 30 (22-32) mmol/L BUN 24 H (7-17) mg/dL Creatinine 0.74 (0.52-1.04) mg/dL Estimated GFR > 60.0 (>60) mL/min BUN/Creatinine Ratio 32.4 H (6-22) Glucose 96 (80-110) mg/dL Calcium 9.6 (8.4-10.2) mg/dL Total Bilirubin 0.5 (0.2-1.3) mg/dL AST 33 (14-36) IU/L ALT 14 (<35) IU/L Alkaline Phosphatase 66 (38-126) U/L Total Creatine Kinase (30-135) U/L CK-MB (CK-2) CK-MB (CK-2) Rel Index Troponin I (0.01-0.034) ng/mL Total Protein 7.5 (6.3-8.2) g/dL Albumin 4.2 (3.5-5.0) g/dL Globulin 3.3 (1.7-4.1) g/dL Albumin/Globulin Ratio 1.3 (1.0-2.8) 04/10/20 Range/Units 18:30 WBC (4.5-11.0) X10^3/uL RBC (4.0-5.2) X10^6/uL Hgb (12.0-16.0) g/dL Hct (36-46) % MCV (80-100) fL MCH (26-34) PG MCHC (30-36) % RDW (11.6-14.8) % Plt Count (150-400) X10^3/uL Neut % (Auto) (50-75) % Lymph % (Auto) (25-40) % [place] % (Auto) (3-14) % Eos % (Auto) (2-4) % Baso % (Auto) (0-2) % Neut # (Auto) (8130-3306) /uL Lymph # (Auto) (9819-7676) /uL [place] # (Auto) (0-900) /uL Eos # (Auto) (0-450) /uL Baso # (Auto) (0-100) /uL PT (10.1-12.7) SECONDS INR (0.9-1.3) Sodium (137-145) mmol/L Potassium (3.4-5.1) mmol/L Chloride (98-107) mmol/L Carbon Dioxide (22-32) mmol/L BUN (7-17) mg/dL Creatinine (0.52-1.04) mg/dL Estimated GFR (>60) mL/min BUN/Creatinine Ratio (6-22) Glucose (80-110) mg/dL Calcium (8.4-10.2) mg/dL Total Bilirubin (0.2-1.3) mg/dL AST (14-36) IU/L ALT (<35) IU/L Alkaline Phosphatase (38-126) U/L Total Creatine Kinase 43 (30-135) U/L CK-MB (CK-2) TNP CK-MB (CK-2) Rel Index TNP Troponin I < 0.012 (0.01-0.034) ng/mL Total Protein (6.3-8.2) g/dL Albumin (3.5-5.0) g/dL Globulin (1.7-4.1) g/dL Albumin/Globulin Ratio (1.0-2.8) MDM Narrative Medical decision making narrative: Patient case reviewed and discussed. Patient discharged yesterday with recent CVA. She is hypertensive today and was started on 2.5mg amlodipine at discharge. Elevated BP after several checks in ER without much improvement. Patient given additional dose in ED of amlodipine with mild improvement. Patient does not have any acute changes or new neurologic changes. Plan to increase amlodipine to 5mg daily and patient may need a second antihypertensive if not adequate. Patient was seen briefly by myself and her main concern at this time is eating. She has referral for outpatient follow up but encouraged to keep following BPs and return if not improving. Discharge Plan Departure Patient Disposition: Home Clinical Impression: Elevated blood pressure reading, H/O TIA (transient ischemic attack) and stroke Discharge Date/Time: 12/14/19 22:12 Instructions: DI for High Blood Pressure Activity Restrictions/Additional Instructions: You have been diagnosed with [elevated blood pressure reading and history of recent TIA]. What to do: *Take your medications as directed. Increase amlodipine dose to total 5 mg (two tabs of 2.5 mg dose) daily. Continue your other current medications. *Follow up with your primary care provider in 2-3 days, call for an appointment. Please contact Dr. Landaverde to discuss your recent TIA and elevated blood pressure which appears to be labile at times. Let them know you were seen in the ED and that we asked you to be seen in follow up. *Return to ED if you have any new, worsening, or concerning symptoms, such as [chest pain, breathing difficulty, fever, unable to tolerate fluids, speech difficulty, severe headache, weakness to 1 side of body, balance problem, vision changes or any acute concerns]. Prescriptions: No Action aspirin 81 mg Tablet,Delayed Release (Dr/Ec) 81 mg PO DAILY 30 Days Qty: 30 RF: 0 atorvastatin 80 mg tablet 80 mg PO BEDTIME 30 Days Qty: 30 RF: 0 clopidogrel 75 mg Tablet 75 mg PO DAILY 21 Days Qty: 21 RF: 0 amlodipine 2.5 mg tablet 2.5 mg PO DAILY 30 Days Qty: 30 RF: 0 Referrals: Brian Landaverde DO [Physician] -
== END 2019-12-14 22:12 | disposition home or self-care (01) ==
PROVIDERS: Emergency Medicine; Emergency Provider Nurse Practitioner Family; PCP Student in an Organized Health Care Education/Training Program
DX: R03.0 Elevated blood-pressure reading, without diagnosis of hypertension (principal); Z86.73 Personal history of transient ischemic attack (TIA), and cerebral infarction without residual deficits; M81.0 Age-related osteoporosis without current pathological fracture
CPT/HCPCS: 36415; 80053; 82550; 84484; 85025; 85610; 93005; 99284

== ENCOUNTER → 2020-12-16 12:51 | Outpatient (CLI) | payer OTHER, SELFPAY ==
[2020-12-09 11:36] VITALS: BMI 25.0
== END ==
PROVIDERS: PCP Physician Assistant; Referring Provider Physician Assistant; Visit Provider Physician Assistant
DX: M81.0 Age-related osteoporosis without current pathological fracture (principal); Z78.0 Asymptomatic menopausal state
CPT/HCPCS: 77080

== ENCOUNTER 2021-11-09 22:37 | Emergency (ER) | payer OTHER, SELFPAY ==
[2020-12-09 11:36] VITALS: BMI 25.0
[2021-11-09 22:50] VITALS: BP 216/93; PULSE 73; RESP 16; TEMP 36.3; O2SAT 98; BMI 23.6
[2021-11-09 23:23] VITALS: BP 177/77
[2021-11-09 23:30] VITALS: BP 184/83
--- NOTE | 2021-11-09 23:44 | DI.CT.S_ITS ---
PROCEDURE: CT HEAD/BRAIN WO CON INDICATIONS: Hypertension and headache TECHNIQUE: Noncontrast 4.5 mm thick angled axial sections acquired from the foramen magnum to the vertex, with coronal and sagittal reformats. For radiation dose reduction, the following was used: automated exposure control, adjustment of mA and/or kV according to patient size. COMPARISON: [facility], CT, CT HEAD/BRAIN WO CON, 12/12/2019, 11:21. FINDINGS: Image quality: Excellent. CSF spaces: Basal cisterns are patent. No extra-axial fluid collections. The ventricles are symmetric in size and shape. Brain: No acute intracranial hemorrhage or mass effect. There is cerebral volume loss for age, with resultant ventricular and sulcal prominence. There are moderate to severe periventricular and deep white matter chronic small vessel ischemic changes. There is intracranial internal carotid artery atherosclerosis. Skull and face: Calvarium and visualized facial bones appear intact, without suspicious lesions. Sinuses: Visualized sinuses and mastoids are clear. IMPRESSION: 1. No acute intracranial abnormality. 2. Moderate to severe chronic microvascular ischemic changes and mild age related cerebral volume loss. Dictated by: Levar Thomas M.D. on 11/10/2021 at 0:38 Approved by: Levar Thomas M.D. on 11/10/2021 at 0:41
--- NOTE | 2021-11-09 23:44 | ED_ITS ---
HPI - General Adult General Chief complaint: Hypertension Stated complaint: HIGH BLOOD PRESSURE OVER 200 Time Seen by Provider: 11/09/21 23:07 Source: patient Mode of arrival: Ambulatory History of Present Illness HPI narrative: Patient is an 86-year-old female. Does have a history of high blood pressure. Did take her blood pressure medications today as directed. She was sitting in a chair. She stood up. She stated that after standing up she felt very poorly. She did not have chest pain or shortness of breath or headache. She stated that she just could not ?control myself ?she had difficulty walking around but was able to stand and walk she does felt like she needed to hold on to things. Her checked her blood pressure and it was elevated. They checked it a couple more times afterwards and continue to elevate. She has had a TIA in the past and that is what she was concerned about. She came to the emergency department. Upon my evaluation she states that she feels much better. She feels back to normal. Related Data Allergies Allergy/AdvReac Type Severity Reaction Status Date / Time No Known Drug Allergies Allergy Verified 12/14/19 18:10 Review of Systems Review of Systems ROS Unobtainable: All systems reviewed & are unremarkable except as noted in HPI and below Patient History Medical History Fx humeral neck Osteoporosis Surgical History H/O breast augmentation Social History household members: none Smoking Status: Never smoker alcohol intake: never Smoking Status: Never smoker alcohol intake frequency: 0-2 drinks per day Substance Use Type: does not use Exam Initial Vital Signs Initial Vital Signs: Vital Signs Temperature 97.4 F L 11/09/21 22:50 Pulse Rate 73 11/09/21 22:50 Respiratory Rate 16 11/09/21 22:50 Blood Pressure 216/93 H 11/09/21 22:50 Pulse Oximetry 98 11/09/21 22:50 HENMT Head: normal to inspection and normocephalic Eyes General: appearance normal, both eyes and all related structures Resp Effort & Inspection: normal respiratory effort Auscultation: clear to auscultation bilaterally Cardio Rate: regular rate Rhythm: regular rhythm GI Inspection: normal to inspection Skin General: no rashes or lesions noted Neuro General: patient alert, patient awake, patient oriented x3 and moves all extremities Cranial Nerves: CN's II-XI intact bilaterally Cognition: normal cognition Extrem General: normal to inspection, capillary refill normal and No edema Psych Appearance: grossly normal and well kempt Scores GCS [place] coma scale eye opening: Spontaneous [place] coma scale verbal response: Orientated [place] coma scale motor response: Obey commands Bran coma scale total score: 15 Course Orders Ordered: ED Orders 11/09/21 23:44 CT head/brain wo con Stat Vital Signs Vital signs: Vital Signs - 8 hr 11/09/21 22:50 11/09/21 23:23 11/09/21 23:30 Temperature 97.4 F L Pulse Rate 73 Respiratory Rate 16 Blood Pressure 216/93 H 177/77 H 184/83 H Pulse Oximetry 98 11/10/21 00:00 Temperature Pulse Rate Respiratory Rate Blood Pressure 174/75 H Pulse Oximetry Medical Decision Making Imaging Data CT scan - head: Radiologist's Impression: [address] [address] [address] Scan Report Signed Patient: Krista Ryan MR#: [id number] : 1935 Acct:[id number] Age/Sex: 86 / F Date of Service: 11/09/21 Loc: ED Accession Number: [id number] ?? Procedure: CT head/brain wo con Ordering Provider: Zay Garber D.O. PROCEDURE:? CT HEAD/BRAIN WO CON ? INDICATIONS:? Hypertension and headache ? TECHNIQUE:? Noncontrast 4.5 mm thick angled axial sections acquired from the foramen magnum to the vertex, with coronal and sagittal reformats.? For radiation dose reduction, the following was used:? automated exposure control, adjustment of mA and/or kV according to patient size.? ? COMPARISON:? [facility], CT, CT HEAD/BRAIN WO CON, 12/12/2019, 11:21. ? FINDINGS:? Image quality:? Excellent.? ? CSF spaces:? Basal cisterns are patent.? No extra-axial fluid collections.? The ventricles are symmetric in size and shape.? ? Brain:? No acute intracranial hemorrhage or mass effect.? There is cerebral volume loss for age, with resultant ventricular and sulcal prominence.? There are moderate to severe periventricular and deep white matter chronic small vessel ischemic changes.? There is intracranial internal carotid artery atherosclerosis.? ? Skull and face:? Calvarium and visualized facial bones appear intact, without suspicious lesions.? ? Sinuses:? Visualized sinuses and mastoids are clear.? ? IMPRESSION:? 1. No acute intracranial abnormality. 2. Moderate to severe chronic microvascular ischemic changes and mild age related cerebral volume loss.? ? ? Dictated by: Levar Thomas M.D. on 11/10/2021 at 0:38 ? ? Approved by: Levar Thomas M.D. on 11/10/2021 at 0:41? ECG Data Attestation: I personally reviewed and interpreted this ECG as follows: Interpretation: Sinus rhythm Ventricular rate of 64 Normal axis Normal QRS Normal QTC No ST changes MDM Narrative Medical decision making narrative: At the time my evaluation the patient was completely asymptomatic. She felt like she was back to baseline. Her blood pressure improved without intervention here in the ER. Had a discussion with her regarding her symptoms. Low suspicion for CVA. Low suspicion for TIA. Low suspicion for ACS all given her clinical presentation. I did discuss options to include blood work and head CT verses sending her home to have her continue to watch her blood pressure. They would like a head CT which was ordered which did not show any signs of acute pathology. I do feel that we can hold on further workup for now. Patient was instructed to continue to take all of her blood pressure medications as directed. She was given return precautions. She expressed understanding and agreement. Discharge Plan Departure Patient Disposition: Home Clinical Impression: Hypertension Instructions: DI for High Blood Pressure Activity Restrictions/Additional Instructions: Continue to take all of your blood pressure medications as directed. Keep all of your scheduled medical appointments. Return to the emergency department for any new or worsening symptoms. Referrals: Charlene Rivera PA-C [Primary Care Provider] -
[2021-11-10] VITALS: BP 174/75
--- NOTE | 2021-11-10 00:28 | PC.NURSE ---
to ct per stretcher
--- NOTE | 2021-11-10 00:58 | PC.NURSE ---
pt c/o blood pressure being elevated, also c/o difficulty walking earlier, ambulatory to room without any difficulty states symptoms are resolved at this time
== END 2021-11-10 01:02 | disposition home or self-care (01) ==
PROVIDERS: Emergency Provider Emergency Medicine; PCP Physician Assistant
DX: I10 Essential (primary) hypertension (principal); Z79.899 Other long term (current) drug therapy
CPT/HCPCS: 70450; 93005; 93010; 99284